=== PATIENT | female | born 1960 | race Caucasian/White ===

== ENCOUNTER 2016-12-11 05:19 | Day surgery (SDC) | payer BC ==
[2016-12-08 17:13] VITALS: BMI 36.0
[2016-12-11] MEDS ORDERED: ACETAMINOPHEN 325 MG TABLET (FP) PO PRN (08:16)
[2016-12-11] MEDS ORDERED: IBUPROFEN 400 MG TABLET (FP) PO PRN (08:16)
[2016-12-11] MEDS ORDERED: ONDANSETRON 4 MG/2 ML VIAL IVPB PRN (08:16)
[2016-12-11] MEDS ORDERED: oxyCODONE HCL 5 MG TABLET PO PRN ×2 (08:16→10:28)
--- NOTE | 2016-12-11 08:16 | HP ---
History & Physical Update - History History: No Change - Physical Physical: No Change - Assessment Assessment: No Change - Plan Plan: No Change
[2016-12-11] MEDS ORDERED: MIDAZOLAM HCL 2 MG/2 ML SINGLE DOSE VIAL ONE (10:23)
[2016-12-11] MEDS ORDERED: PROPOFOL 20 ML ONE (10:23)
[2016-12-11] MEDS ORDERED: GLYCOPYRROLATE 0.2 MG/1 ML VIAL ONE (10:24)
[2016-12-11] MEDS ORDERED: ONDANSETRON 4 MG/2 ML VIAL IVPUSH PRN (10:28)
[2016-12-11] MEDS ORDERED: PROMETHAZINE HCL 25 MG/1 ML VIAL IVPUSH PRN (10:28)
[2016-12-11] MEDS ORDERED: LACTATED RINGERS SOLUTION 1,000 ML IV SCH (10:30)
[2016-12-11] MEDS ORDERED: LIDOCAINE HCL/PF 2% SDV 5ML VIAL ONE (10:46)
[2016-12-11] MEDS ORDERED: ceFAZolin SODIUM 1 GM VIAL ONE (10:55)
[2016-12-11] MEDS ORDERED: DEXAMETHASONE SOD PHOSPHATE 4 MG/1 ML VIAL ONE (10:55)
[2016-12-11] MEDS ORDERED: ceFAZolin SODIUM 1 GM VIAL IVPB ONE (11:11)
[2016-12-11] MEDS ORDERED: KETOROLAC TROMETHAMINE 30 MG/1 ML VIAL ONE (11:27)
[2016-12-11] MEDS ORDERED: oxyCODONE HCL 5 MG TABLET ONE (13:01)
--- NOTE | 2016-12-11 13:11 | OP ---
Operative Note - Note: Operative Date: 12/11/16 Pre-Operative Diagnosis: Postmenopausal bleeding Operation: Hysteroscopic myomectomy. Suction DC. Hysteroscopic lysis of adhesions Findings: submucosal myoma Post-Operative Diagnosis: Same as Pre-op Surgeon: Bhavna Corrigan Anesthesia: General Estimated Blood Loss (mls): 10 Operative Report Dictated: Yes
[2016-12-11 18:13] VITALS: BP 106/60; PULSE 68
--- NOTE | 2016-12-12 06:03 | OP ---
DATE OF OPERATION: 12/11/2016 PREOPERATIVE DIAGNOSIS: Postmenopausal bleeding. PROCEDURE: Hysteroscopic myomectomy, suction dilatation and curettage, hysteroscopic lysis of adhesions. FINDINGS: Submucosal myoma and adhesions. POSTOPERATIVE DIAGNOSIS: Postmenopausal bleeding. SURGEON: Bhavna Corrigan MD ANESTHESIA: General. ESTIMATED BLOOD LOSS: 10 mL. PROCEDURE: Patient was taken to the operating room, placed in dorsal lithotomy position, prepped and draped in the usual sterile fashion. Speculum was placed in the vagina. Anterior lip of the cervix grasped with single-tooth tenaculum. Cervix was then dilated to accommodate the hysteroscope. Cervix could not be dilated for operative hysteroscope. Endocervical polyp was seen and was removed using operative hysteroscope. A diagnostic hysteroscope was then inserted. Visualization revealed small endometrial polyps. Patient was very stenotic and unable to dilate to accommodate the operative hysteroscope. Lysis of adhesions was done. Patient appeared to have a septum located in the midline of the uterus which prevented further dilation. The diagnostic hysteroscope revealed endometrial polyps. No endometrial cancer was seen. Cavity was normal other than polyps. Diagnostic hysteroscope was removed, and suction D & C was then done using a No. 7 suction curet. Endometrial curettings were submitted to Pathology and endometrial polyp was submitted. Estimated blood loss: 10 mL. BHAVNA CORRIGAN M.D. TIERRA/[id number]
--- NOTE | 2016-12-14 13:12 | PATH ---
Surgical Pathology Report Patient Name: DIRK MCCANN [facility]. Rec. #: [id number] /Age/Gender: 1960 (Age: 56) / F Account: [id number] Location: [facility] SURGICAL Taken: 12/11/2016 Received: 12/11/2016 Reported: 12/14/2016 Physicians: Bhavna Corrigan M.D. Specimen(s) Received A: ENDOCERVICAL CURETTINGS B: ENDOMETRIAL CURETTINGS Clinical History Postmenopausal bleeding Final Diagnosis A. ENDOCERVICAL POLYP, POLYPECTOMY: CONSISTENT WITH ENDOCERVICAL POLYP. B. ENDOMETRIUM, CURETTAGE: STRIPS OF ATROPHIC APPEARING ENDOMETRIUM. SCANT FRAGMENTS OF BENIGN SQUAMOUS EPITHELIUM. Electronically Signed Mario Correa M.D. Gross Description A. Received in formalin, labeled "endocervical polyp" is a 0.5 x 0.4 x 0.2 cm pink-diggs, polypoid portion of soft tissue which is submitted in toto in one cassette. B. Received in formalin, labeled "endometrial curettings" is a 0.7 x 0.5 x 0.1 cm aggregate of diggs-brown soft tissue fragments. The formalin is filtered and the specimen is entirely submitted in one cassette. 12/11/201612/11/2016
== END 2016-12-11 14:00 | disposition home or self-care (01) ==
LOC: JASU-SURG 05:19
PROVIDERS: ATTEND Obstetrics & Gynecology
PROC: 0UDB8ZX Extraction of Endometrium, Via Natural or Artificial Opening Endoscopic, Diagnostic (ICD-10-PCS; principal; 2016-12-11 09:30)
PROC: 0UB98ZZ Excision of Uterus, Via Natural or Artificial Opening Endoscopic (ICD-10-PCS; 2016-12-11 09:30)
DX: N95.0 Postmenopausal bleeding (principal); N85.6 Intrauterine synechiae
CPT/HCPCS: 88305-TC; 94760

== ENCOUNTER 2017-09-17 20:25 | Inpatient (IN) | payer BC ==
[2017-09-17 20:31] VITALS: BMI 34.4
--- NOTE | 2017-09-17 20:32 | PDOC ---
Rapid Medical Evaluation Chief Complaint: Injury Time Seen by Provider: 09/17/17 20:27 Medical Evaluation: Allergies Allergy/AdvReac Type Severity Reaction Status Date / Time No Known Allergies Allergy Verified 12/11/16 08:56 09/17/17 20:27 I have performed a brief in-person evaluation of this patient. The patient presents with a chief complaint of: Fall, Head injury with + LOC Pertinent physical exam findings: Laceration to left forehead I have ordered the following: Head and Neck CT, labs, urinalysis. The patient will proceed to the ED for further evaluation Patient presents to ED with daughter x2 c/o head injury w/ laceration. Daughter state patient went out for a smoke for about 15 mins, returned confused and bleeding from head. Daughter secretly reported that patient had been drinking tonight.
[2017-09-17 21:24] LABS: BASOPHIL 0.9 % (0-2.0); EOSINOPHIL 4.2 % (0-4.5); MCH 31.7 pg (25.7-33.7); MCHC 33.9 g/dl (32.0-36.0); MEAN CELL VOLUME 93.5 fl (80-96); MEAN PLT VOLUME 7.8 fl (7.5-11.1); NEUTROPHILS 57.7 % (42.8-82.8); PLATELET COUNT 249 K/MM3 (134-434); RDW 12.8 % (11.6-15.6); WHITE BLOOD COUNT 9.8 K/mm3 (4.0-10.0)
[2017-09-17 21:26] LABS: URINE APPEARANCE CLEAR; URINE BILIRUBIN NEGATIVE (NEGATIVE); URINE BLOOD NEGATIVE (NEGATIVE); URINE COLOR STRAW; URINE GLUCOSE (UA) NEGATIVE (NEGATIVE); URINE KETONE NEGATIVE (NEGATIVE); URINE NITRITE NEGATIVE (NEGATIVE); URINE PROTEIN NEGATIVE (NEGATIVE); URINE UROBILINOGEN NEGATIVE mg/dL (0.2-1.0)
--- NOTE | 2017-09-17 21:33 | PDOC ---
History of Present Illness - General Chief Complaint: Injury Stated Complaint: HEAD INJURY Time Seen by Provider: 09/17/17 20:27 - History of Present Illness Initial Comments: 09/17/17 21:29 57F with pmh of depression, cataracts surgery and back pain on Tizanidine came to the ER after fall with head trauma. Patient went outside to smoke and came back 15 min later with a laceration on her left sabianism. She doesn't remember what happened, fall not witnessed, possible LOC. No other complains. Daughters are here, claim mother was drinking tonight, and that she keeps repeating the same questions. Past History - Past Medical History Allergies/Adverse Reactions: Allergies Allergy/AdvReac Type Severity Reaction Status Date / Time Penicillins Allergy Verified 09/17/17 20:27 Home Medications: Ambulatory Orders Meloxicam [Mobic -] 15 mg PO DAILY 10/05/12 Multivitamin [Multivitamins] 1 each PO DAILY 10/05/12 Sertraline HCl [Zoloft -] 150 mg PO DAILY 10/05/12 Ascorbate Calcium [Vitamin C] 500 mg PO DAILY 12/08/16 [place]-3 Fatty Acids [Fish Oil] 300 mg PO DAILY 12/08/16 Ibuprofen [Motrin -] 600 mg PO QID PRN #28 tablet 12/11/16 Anemia: Yes Asthma: No Cancer: No Cardiac Disorders: No CVA: No COPD: No CHF: No Dementia: No Diabetes: No GI Disorders: No Disorders: No HTN: No Hypercholesterolemia: No Liver Disease: No Psychiatric Problems: Yes (anxiety) Seizures: No Thyroid Disease: No Other medical history: glaucoma - Surgical History Abdominal Surgery: No Appendectomy: No Cardiac Surgery: No Cholecystectomy: No Lung Surgery: No Neurologic Surgery: No Orthopedic Surgery: Yes (LEFT KNEE ARTHROSCOPIC SURGERY AND RIGHT KNEE REPALCEMENT 01/10) - Suicide/Smoking/Psychosocial Hx Smoking History: Current every day smoker Have you smoked in the past 12 months: Yes Number of Cigarettes Smoked Daily: 6 Information on smoking cessation initiated: No 'Breaking Loose' booklet given: 10/05/12 Hx Alcohol Use: No Drug/Substance Use Hx: No Substance Use Type: None Hx Substance Use Treatment: No Review of Systems - Review of Systems Constitutional: No: Symptoms Reported HEENTM: No: Symptoms Reported Respiratory: No: Symptoms reported Cardiac (ROS): No: Symptoms Reported ABD/GI: No: Symptoms Reported : No: Symptoms Reported Musculoskeletal: No: Symptoms Reported Neurological: Yes: Headache Psychiatric: Yes: Depression *Physical Exam - Vital Signs Last Vital Signs Temp Pulse Resp BP Pulse Ox 97.5 F L 78 18 135/83 100 09/17/17 20:27 09/17/17 20:27 09/17/17 20:27 09/17/17 20:27 09/17/17 20:27 - Physical Exam General Appearance: Yes: Nourished, Appropriately Dressed. No: Apparent Distress HEENT: positive: Other (3cm deep laceration on the right fronto-temporal skull. no active bleeding. Pupils 3mm, not reacting to light or accomodating. ) Respiratory/Chest: positive: Lungs Clear, Normal Breath Sounds. negative: Chest Tender Cardiovascular: positive: Regular Rhythm, Regular Rate, S1, S2 Gastrointestinal/Abdominal: positive: Normal Bowel Sounds, Soft. negative: Tender Neurologic: positive: Fully Oriented, Alert, Normal Mood/Affect, Normal Response , Motor Strength 5/5, Depressed Affect ED Treatment Course - LABORATORY CBC & Chemistry Diagram: 09/17/17 20:50 09/17/17 20:50 - ADDITIONAL ORDERS Additional order review: 09/17/17 20:50 RBC 4.36 MCV 93.5 MCHC 33.9 RDW 12.8 MPV 7.8 Neutrophils % 57.7 Lymphocytes % 30.9 Monocytes % 6.3 Eosinophils % 4.2 Basophils % 0.9 Medical Decision Making - Medical Decision Making 09/17/17 23:53 57F presenting with head laceration s/p fall. Unknown mechanism. Patient labs ordered. Urine positive for alcohol and cocaine [address] head: Acute left frontal bone fracture at junction of left frontal and temporal bones. The fracture fragment which measures approximately 2.2cm in length is depressed medially approximately 7mm. It impresses on the cortex at the junction on the left. There are one or 2 subdural air next to the fracture. No hemorrhage is identified. No shift or herniation. No infarct. There is overlying soft tissue injury. CT Neck: Negative for cervial fracture or malalignment. 1.2cm right lobe thyroid nodule 09/17/17 23:58 Started the patient on Vancomycin and Meropenem Consulted with Dr. Braulio Aguila, Neurosurgeon who will see the patient tonight. Recommended antibiotics and elevating head of the bed in the meantime. Consulted with Dr. Hughes, Neurology who recommended Adding Keppra Consulted with Hospitalist Dr. Gutierrez who accepted the patient. Admitted to ICU. Dr. Aguila present in the ER talking to the patient, informing her of need of surgery tomorrow. *DC/Admit/Observation/Transfer Diagnosis at time of Disposition: Depressed skull fracture - Discharge Dispostion Admit: Yes - Referrals Referrals: Elmer Cheung [Primary Care Provider] - - Patient Instructions - Post Discharge Activity
--- NOTE | 2017-09-17 21:42 | PDOC ---
Attending Attestation - Resident Resident Name: Bruno Luther - ED Attending Attestation I have performed the following: I have examined & evaluated the patient, The case was reviewed & discussed with the resident, I agree w/resident's findings & plan - HPI HPI: 09/17/17 22:36 Pt comes with fall in her backyard. She walked in after being down. Unclear how long she was down. 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 Pt lives with ehr and 2 daughters. Younger daughter was at home at the time, but was not aware that om went out to smoke. wanted pt to stay home figured she was okay. Older daughter came home to find mom bleeding. Both daughters brought mom to hospital. 09/17/17 22:42 Pt has depression anxiety; switched to paxil 2 months ago when her niece suddenly. Pt has fibromyalgia and she takes muscle relaxants. Pt also had alcohol today and her alcohol level is 200s. Other labs are normal. lvn Neurosurgeon and neurology are aware of the patient. Pt will be admitted to the hospitalist team; we will request an ICU bed overnight. - Physicial Exam PE: 09/17/17 22:40 Here pt is awake and alert and she is ambulatory. Ambulated to the bathroom here. She has no cerebellar symptoms. Neurologically intact; able to follow commands. CN 2 -12 intact, except for left pupil which is not reacting to light and not reacting to consensual light either. Pt's EOMI. Romberg normal. Pt has left temporal laceration. Rest of exam normal. CT head result is pending, however we can see a 2 inch area of the left alevism depressed fracture. - Medical Decision Making 09/17/17 23:01 Pt is + for cocaine; Pt is + for alcohol. Dr. Ricky Aguila neurosjasbir is at bedside to see the patient. Dr. Mauro is aware of the patient; hospitalist will admit patient, as her PMD is not in this hospital.
[2017-09-17 21:51] LABS: ANION GAP 9 (8-16); CALCIUM 8.1 mg/dL (8.5-10.1); CO2 24 mmol/L (21-32); CREATININE 0.4 mg/dL (0.55-1.02); GLUCOSE,RANDOM 106 mg/dL (74-106); SGOT/AST 16 U/L (15-37); SGPT/ALT 33 U/L (12-78)
[2017-09-17 21:53] LABS: ALK PHOS 65 U/L (45-117); BILIRUBIN,TOTAL 0.7 mg/dL (0.2-1.0)
[2017-09-17] MEDS ORDERED: VANCOMYCIN 1,500 MG in DEXTROSE 5%-WATER - 500 ML IVPB ONE (22:35)
[2017-09-17] MEDS ORDERED: DEXTROSE 5% IVPB ONE (22:38)
[2017-09-17] MEDS ORDERED: WATER IVPB ONE (22:38)
[2017-09-17] MEDS ORDERED: MEROPENEM IVPB ONE (22:38)
[2017-09-17 22:58] LABS: URINE MARIJUANA THC NEGATIVE ng/ml (CUTOFF=50)
--- NOTE | 2017-09-17 23:22 | PN ---
Progress Note (short form) - Note Progress Note: NEUROSURGERY CONSULT DICTATED History obtained Pt examined Family at bedside Was drinking and fell and hit her head; + LOC; no witnessed sz c/o H/A but no N/V PE: AF, VSS A/A/Ox3 HEENT- L temporal lac with skull depression; Neck- supple; Cor- RRR; Lungs- CTA B; Abd- benign, + BS; Ext- no sign of fx or DVT CN- intact; pupils reportedly dilated earlier; Motor- 5/5 without drift; Sensation- intact LT, vibration; DTR- 1+; cerebellar- intact FTN B Head CT (prelim)- L fronto-temporal depressed skull fx; no significant intracranial bleed WBC 9.8; Na 134; INR/Ptt pending L fronto-temporal open depressed skull fracture Pre-op OR in AM (0900) L fronto-temporal craniotomy for elevation of fx, debridement, and skull reconstruction- consent obtained and witnessed Iv abx per medical team nikki for sz prophylaxis Risks: bleeding, infection, stroke, sz, coma, , brain abscess/meningitis, general anesthesia ICU tonight Nursing supervisor [place] informed D/w medical team
[2017-09-17 23:30] LABS: INR 0.92 (0.82-1.09); PROTHROMBIN TIME (PATIENT) 10.4 SEC (9.98-11.88)
[2017-09-17] MEDS ORDERED: MEROPENEM 2 GM in DEXTROSE 5%-WATER - 250 ML IVPB ONE (23:30)
[2017-09-17 23:32] LABS: ACTIVATED PTT 29.7 SECONDS (26.9-34.4)
--- NOTE | 2017-09-17 23:51 | PN ---
Teaching Attending Note Name of Resident: Bill Glynn ATTENDING PHYSICIAN STATEMENT I saw and evaluated the patient. I reviewed the resident's note and discussed the case with the resident. I agree with the resident's findings and plan as documented. SUBJECTIVE: 57 y/o s/p fall at home with trauma to left temporal area and LOC time unknown. Patient reports drinking before incident and has no recollection of what happened. Denies visual changes, headache, dizziness, confusion or chest pain or SOB. OBJECTIVE: Gen: A&Ox3 cooperative and anxious HEENT: LEft temporal laceration and depression, with minimal bleeding and swelling. EOMI,, normal nasal and oral mucosa. CVS: RRR, S1,S2 LUNGS: CTA Abd: Soft, NT, ND, BS+ no organomegaly Ext: b/l knee scars , nl ROM, no edema Neuro: CN2-12 intact CBCD WBC 9.8 K/mm3 (4.0-10.0) 09/17/17 20:50 RBC 4.36 M/mm3 (3.60-5.2) 09/17/17 20:50 Hgb 13.8 GM/dL (10.7-15.3) 09/17/17 20:50 Hct 40.7 % (32.4-45.2) 09/17/17 20:50 MCV 93.5 fl (80-96) 09/17/17 20:50 MCHC 33.9 g/dl (32.0-36.0) 09/17/17 20:50 RDW 12.8 % (11.6-15.6) 09/17/17 20:50 Plt Count 249 K/MM3 (134-434) 09/17/17 20:50 MPV 7.8 fl (7.5-11.1) 09/17/17 20:50 CMP Sodium 134 mmol/L (136-145) L 09/17/17 20:50 Potassium 3.8 mmol/L (3.5-5.1) 09/17/17 20:50 Chloride 101 mmol/L (98-107) 09/17/17 20:50 Carbon Dioxide 24 mmol/L (21-32) 09/17/17 20:50 Anion Gap 9 (8-16) 09/17/17 20:50 BUN 17 mg/dL (7-18) 09/17/17 20:50 Creatinine 0.4 mg/dL (0.55-1.02) L 09/17/17 20:50 Creat Clearance w eGFR > 60 (>60) 09/17/17 20:50 Random Glucose 106 mg/dL (74-106) 09/17/17 20:50 Calcium 8.1 mg/dL (8.5-10.1) L 09/17/17 20:50 Total Bilirubin 0.7 mg/dL (0.2-1.0) D 09/17/17 20:50 AST 16 U/L (15-37) 09/17/17 20:50 ALT 33 U/L (12-78) 09/17/17 20:50 Alkaline Phosphatase 65 U/L (45-117) 09/17/17 20:50 Total Protein 7.0 g/dl (6.4-8.2) 09/17/17 20:50 Albumin 4.0 g/dl (3.4-5.0) 09/17/17 20:50 ASSESSMENT AND PLAN: Open Depressed skull fracture, s/p fall and LOC Neurowatch q2h Admit to ICU for close observation Wound cleansed in ED and dressing placed. Type and screen, Coag profile. Vancomycin and Meropenem Keppra given for seizure prophylaxis Tetanus shot given in ED ID Consult ICU consult Case d/w neurosurgeon and plan for OR in AM, NPO after midnight, follow care recommendations. Critical Care Total Critical Care Time (in minutes): 55 Critical Care Statement: The care of this patient involved high complexity decision making to prevent further life threatening deterioration of the patient 's condition and/or to evaluate & treat vital organ system(s) failure or risk of failure.
--- NOTE | 2017-09-18 00:42 | HP ---
CHIEF COMPLAINT:s/p head injury PCP:Elmer Cheung HISTORY OF PRESENT ILLNESS: 57 yo F with PMHx of depression presents s/p fall and head injury. She states that she was drinking this afternoon and went outside to have a cigarette when she fell to ground and hit her head. Fall was unwitnessed. She states she is unsure how long she was unconscious for but when she ccame to she walked into her house and her family members noticed her head bleeding. This prompted call to EMS. She is complaining of associated headache. Denies CP,SOB, palpitations, abdominal pain, N/V. ER course was notable for: (1)CT of head showed Open depressed skull fracture. (2)Neuro surgery consulted. (3)Keppra 500 given . Recent Travel: PAST MEDICAL HISTORY:depression and anxiety. PAST SURGICAL HISTORY:cataract, glucoma, , right knee repair. Social History: Smokin pack year history Alcohol:6 drinks/day Drugs: cocaine Family History: Allergies Penicillins Allergy (Verified 09/17/17 20:27) HOME MEDICATIONS: Home Medications Medication Instructions Recorded Meloxicam [Mobic -] 15 mg PO DAILY 10/05/12 Multivitamin [Multivitamins] 1 each PO DAILY 10/05/12 Sertraline HCl [Zoloft -] 150 mg PO DAILY 10/05/12 Ascorbate Calcium [Vitamin C] 500 mg PO DAILY 12/08/16 [place]-3 Fatty Acids [Fish Oil] 300 mg PO DAILY 12/08/16 Ibuprofen [Motrin -] 600 mg PO QID PRN #28 tablet 12/11/16 REVIEW OF SYSTEMS CONSTITUTIONAL: Absent: fever, chills, diaphoresis, generalized weakness, malaise, loss of appetite, weight change HEENT: left sided head pain. Absent: rhinorrhea, nasal congestion, throat pain, throat swelling, difficulty swallowing, mouth swelling, ear pain, eye pain, visual changes CARDIOVASCULAR: Absent: chest pain, syncope, palpitations, irregular heart rate, lightheadedness , peripheral edema RESPIRATORY: Absent: cough, shortness of breath, dyspnea with exertion, orthopnea, wheezing, stridor, hemoptysis GASTROINTESTINAL: Absent: abdominal pain, abdominal distension, nausea, vomiting, diarrhea, constipation, melena, hematochezia GENITOURINARY: Absent: dysuria, frequency, urgency, hesitancy, hematuria, flank pain, genital pain MUSCULOSKELETAL: Absent: myalgia, arthralgia, joint swelling, back pain, neck pain SKIN: Absent: rash, itching, pallor HEMATOLOGIC/IMMUNOLOGIC: Absent: easy bleeding, easy bruising, lymphadenopathy, frequent infections ENDOCRINE: Absent: unexplained weight gain, unexplained weight loss, heat intolerance, cold intolerance NEUROLOGIC: Absent: headache, focal weakness or paresthesias, dizziness, unsteady gait, seizure, mental status changes, bladder or bowel incontinence PSYCHIATRIC: Absent: anxiety, depression, suicidal or homicidal ideation, hallucinations. PHYSICAL EXAMINATION Vital Signs - 24 hr 09/17/17 20:27 Temperature 97.5 F L Pulse Rate 78 Respiratory 18 Rate Blood Pressure 135/83 O2 Sat by Pulse 100 Oximetry (%) GENERAL: AAOx3, NAD. HEAD: L temporal lac with skull depression EYES: Pupils reactive but dialated. , sclera anicteric, conjunctiva clear. No lid lag. EARS, NOSE, THROAT: Moist mucous membranes. NECK: Normal range of motion, supple without lymphadenopathy, JVD, or masses. LUNGS: CTAB. No wheezes, and no crackles. No accessory muscle use. HEART: RRR, normal S1 and S2 No M/G/R ABDOMEN: Soft, nontender, not distended, normoactive bowel sounds, no guarding, no rebound, no masses. MUSCULOSKELETAL: Normal range of motion at all joints. No bony deformities or tenderness. No CVA tenderness. UPPER EXTREMITIES: 2+ pulses, warm, well-perfused. No cyanosis. No clubbing. No peripheral edema. LOWER EXTREMITIES: 2+ pulses, warm, well-perfused. No calf tenderness. No peripheral edema. NEUROLOGICAL: Cranial nerves II-XII intact. Normal speech. No focal deficits. PSYCHIATRIC: Cooperative. Good eye contact. Appropriate mood and affect. SKIN: Warm, dry, normal turgor, no rashes or lesions noted, normal capillary refill. Laboratory Results - last 24 hr 09/17/17 09/17/17 09/17/17 20:33 20:50 20:50 WBC 9.8 RBC 4.36 Hgb 13.8 Hct 40.7 MCV 93.5 MCH 31.7 MCHC 33.9 RDW 12.8 Plt Count 249 MPV 7.8 Neutrophils % 57.7 Lymphocytes % 30.9 Monocytes % 6.3 Eosinophils % 4.2 Basophils % 0.9 PT with INR INR PTT (Actin FS) Sodium Potassium Chloride Carbon Dioxide Anion Gap BUN Creatinine Creat Clearance w eGFR Random Glucose Calcium Total Bilirubin AST ALT Alkaline Phosphatase Total Protein Albumin Urine Color Straw Urine Appearance Clear Urine pH 5.0 Ur Specific [place] 1.006 Urine Protein Negative Urine Glucose (UA) Negative Urine Ketones Negative Urine Blood Negative Urine Nitrite Negative Urine Bilirubin Negative Urine Urobilinogen Negative Opiates Screen Methadone Screen Barbiturate Screen Phencyclidine Screen Ur Amphetamines Screen MDMA (Ecstasy) Screen Benzodiazepines Screen Cocaine Screen U Marijuana (THC) Screen Alcohol, Quantitative 201.6 H* 09/17/17 09/17/17 09/17/17 20:50 22:20 23:00 WBC RBC Hgb Hct MCV MCH MCHC RDW Plt Count MPV Neutrophils % Lymphocytes % Monocytes % Eosinophils % Basophils % PT with INR 10.40 INR 0.92 PTT (Actin FS) 29.7 Sodium 134 L Potassium 3.8 Chloride 101 Carbon Dioxide 24 Anion Gap 9 BUN 17 Creatinine 0.4 L Creat Clearance w eGFR > 60 Random Glucose 106 Calcium 8.1 L Total Bilirubin 0.7 D AST 16 ALT 33 Alkaline Phosphatase 65 Total Protein 7.0 Albumin 4.0 Urine Color Urine Appearance Urine pH Ur Specific [place] Urine Protein Urine Glucose (UA) Urine Ketones Urine Blood Urine Nitrite Urine Bilirubin Urine Urobilinogen Opiates Screen Negative Methadone Screen Negative Barbiturate Screen Negative Phencyclidine Screen Negative Ur Amphetamines Screen Negative MDMA (Ecstasy) Screen Negative Benzodiazepines Screen Negative Cocaine Screen Positive U Marijuana (THC) Screen Negative Alcohol, Quantitative ASSESSMENT/PLAN: 57 yo F with PMHx of depression presents s/p fall and head injury found to have open depressed skull fracture admitted to ICU for neurosurgery in AM. Problem List - Problem (1) Depressed skull fracture Assessment/Plan: CT shows open depressed skull fracture. * Seen by Dr. Aguila and will take her to OR at 900 AM * Admit to ICU. * Coags and type and screen sent. * TSH pending. * Neuro Dr. Hughes consulted. * NPO * Keppra for seizure prevention. * Meropenem/Vanco started for Abx coverage. --> Dr. Leon consulted. (2) Depression Assessment/Plan: Continue Zoloft. (3) DVT prophylaxis Assessment/Plan: held for acute bleed. Visit type - Emergency Visit Emergency Visit: Yes ED Registration Date: 09/17/17 Care time: The patient presented to the Emergency Department on the above date and was hospitalized for further evaluation of their emergent condition. - New Patient This patient is new to me today: Yes Date on this admission: 09/18/17 - Critical Care Critical Care patient: Yes Total Critical Care Time (in minutes): 68 Critical Care Statement: The care of this patient involved high complexity decision making to prevent further life threatening deterioration of the patient 's condition and/or to evaluate & treat vital organ system(s) failure or risk of failure.
[2017-09-18] MEDS ORDERED: PNEUMOC 13-VAL CONJ-DIP CRM/PF 0.5 ML DISP.SYRIN IM ONE (01:54)
--- NOTE | 2017-09-18 04:49 | CONSULT ---
Consult Consult Specialty:: Pulm/CCM Reason for Consultation:: Head trauma with depressed skull fracture - History of Present Illness Chief Complaint: Headache History of Present Illness: 57 saray with PMHx of depression, fibromyalgia, cataracts s/p surgery, glaucoma, daily ETOH.(beer) who was brought in by daughter after fall at home with resulting head trauma. Pt states that she was in her usual state of health when she went outside in the yard with the dog, She does not recall falling. She denied chest pain, dizziness or sick prodrome. In ED she was noted to have a 3cm laceration to left frontal/temporal area of her head. CTH significant for acute frontal bone fracture at the junction of the left frontal and temporal bones with a depressed 2.2 cm fragment impressing on the cortex.There was no hemorrhage, herniation or infarct. CT neck was negative. UTox notable for cocaine. Alcohol level was 201. Pupils ar unequal and minimally reactive m/l 2/2 to previous surgery. No focal deficits noted on exam. She was seen by neuro surgery, Dr Aguila with plan for craniotomy at 9am. Head laceration was sutured and she was started on vancomycin and meropenem for prophylaxis. She was transferred to ICU for observation. In ICU rec'd A+O x3, 120/60, HR 88, O2 sat 97%. Dressing to head laceration dry and intact. Neuro checks q1h. No focal deficits on exam. DODGE. Denies numbness tingling. Pt c/o 6/10 headache. No s&s of DTs. 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 History of Recent Travel: No Home Medications - Allergies Allergies/Adverse Reactions: Allergies Allergy/AdvReac Type Severity Reaction Status Date / Time Penicillins Allergy Verified 09/17/17 20:27 - Home Medications Home Medications: Ambulatory Orders Meloxicam [Mobic -] 15 mg PO DAILY 10/05/12 Multivitamin [Multivitamins] 1 each PO DAILY 10/05/12 Sertraline HCl [Zoloft -] 150 mg PO DAILY 10/05/12 Ascorbate Calcium [Vitamin C] 500 mg PO DAILY 12/08/16 [place]-3 Fatty Acids [Fish Oil] 300 mg PO DAILY 12/08/16 Ibuprofen [Motrin -] 600 mg PO QID PRN #28 tablet 12/11/16 Family Disease History - Family Disease History Family History: Unremarkable Review of Systems Unable to obtain ROS, reason: Pt has no recollection Physical Exam Vital Signs: Vital Signs Temperature 98.1 F 09/18/17 01:38 Pulse Rate 78 09/18/17 01:38 Respiratory Rate 16 09/18/17 01:38 Blood Pressure 128/63 09/18/17 01:38 O2 Sat by Pulse Oximetry (%) 96 09/18/17 01:38 Constitutional: Yes: Well Nourished, No Distress, Calm Eyes: Yes: Other (anisocoria 2/2 eye surgery) HENT: Yes: Normocephalic, Other (head dressing c/d/i) Neck: Yes: Supple Cardiovascular: Yes: WNL, Regular Rate and Rhythm Respiratory: Yes: Regular, CTA Bilaterally Gastrointestinal: Yes: Normal Bowel Sounds, Soft Renal/: Yes: Other (voiding) Musculoskeletal: Yes: WNL Extremities: Yes: WNL Edema: No Peripheral Pulses WNL: Yes Integumentary: Yes: WNL Wound/Incision: Yes: Clean/Dry Neurological: Yes: Alert, Oriented ...Motor Strength: WNL Psychiatric: Yes: Alert, Oriented Labs: CBC, BMP 09/17/17 20:50 09/17/17 20:50 CBC,CMP WBC 9.8 K/mm3 (4.0-10.0) 09/17/17 20:50 RBC 4.36 M/mm3 (3.60-5.2) 09/17/17 20:50 Hgb 13.8 GM/dL (10.7-15.3) 09/17/17 20:50 Hct 40.7 % (32.4-45.2) 09/17/17 20:50 MCV 93.5 fl (80-96) 09/17/17 20:50 MCH 31.7 pg (25.7-33.7) 09/17/17 20:50 MCHC 33.9 g/dl (32.0-36.0) 09/17/17 20:50 RDW 12.8 % (11.6-15.6) 09/17/17 20:50 Plt Count 249 K/MM3 (134-434) 09/17/17 20:50 MPV 7.8 fl (7.5-11.1) 09/17/17 20:50 Neutrophils % 57.7 % (42.8-82.8) 09/17/17 20:50 Lymphocytes % 30.9 % (8-40) 09/17/17 20:50 Monocytes % 6.3 % (3.8-10.2) 09/17/17 20:50 Eosinophils % 4.2 % (0-4.5) 09/17/17 20:50 Basophils % 0.9 % (0-2.0) 09/17/17 20:50 Sodium 134 mmol/L (136-145) L 09/17/17 20:50 Potassium 3.8 mmol/L (3.5-5.1) 09/17/17 20:50 Chloride 101 mmol/L (98-107) 09/17/17 20:50 Carbon Dioxide 24 mmol/L (21-32) 09/17/17 20:50 Anion Gap 9 (8-16) 09/17/17 20:50 BUN 17 mg/dL (7-18) 09/17/17 20:50 Creatinine 0.4 mg/dL (0.55-1.02) L 09/17/17 20:50 Creat Clearance w eGFR > 60 (>60) 09/17/17 20:50 Random Glucose 106 mg/dL (74-106) 09/17/17 20:50 Calcium 8.1 mg/dL (8.5-10.1) L 09/17/17 20:50 Total Bilirubin 0.7 mg/dL (0.2-1.0) D 09/17/17 20:50 AST 16 U/L (15-37) 09/17/17 20:50 ALT 33 U/L (12-78) 09/17/17 20:50 Alkaline Phosphatase 65 U/L (45-117) 09/17/17 20:50 Total Protein 7.0 g/dl (6.4-8.2) 09/17/17 20:50 Albumin 4.0 g/dl (3.4-5.0) 09/17/17 20:50 TSH 3.02 uIU/ml (0.358-3.74) 09/17/17 22:51 Imaging - Results Cat Scan: Report Reviewed (CT Head Left frontal/temporal fracture with 2.2cm fragment impessing cortex; no hemorrhage, herniation or infarct) Problem List - Problems (1) Alcohol abuse Code(s): F10.10 - ALCOHOL ABUSE, UNCOMPLICATED (2) Depressed skull fracture Code(s): S02.91XA - UNSP FRACTURE OF SKULL, INIT ENCNTR FOR CLOSED FRACTURE Qualifiers: Encounter type: initial encounter Fracture type: open Qualified Code(s): S02.91XB - Unspecified fracture of skull, initial encounter for open fracture (3) Depression Code(s): F32.9 - MAJOR DEPRESSIVE DISORDER, SINGLE EPISODE, UNSPECIFIED Qualifiers: Depression Type: major depressive disorder Assessment/Plan 57yow with PMHx depression and alcohol abuse admitted with left depressed frontal/temporal skull fracture after a fall at home. + LOC. Neuro checks currently normal. Being observed in ICU. Plan for OR with neurosurgery for skull fracture repair. Plan: -Plan as per neuro surgery -Neuro checks q2 -NPO for OR -Cont keppra for seizure prophylaxis -Cont Meropenem and vanco for prophylaxis - DVT prophylaxis
[2017-09-18] MEDS ORDERED: LACTATED RINGERS SOLUTION 1,000 ML IV SCH (08:45)
[2017-09-18] MEDS ORDERED: PROMETHAZINE HCL 25 MG/1 ML VIAL IVPUSH PRN (09:00)
[2017-09-18] MEDS ORDERED: ONDANSETRON 4 MG/2 ML VIAL IVPUSH PRN ×2 (09:00→11:51)
[2017-09-18] MEDS ORDERED: PNEUMOCOCCAL 23 VACCINE 0.5 ML VIAL IM ONE (09:00)
[2017-09-18] MEDS ORDERED: ROCURONIUM BROMIDE 50 MG/5 ML VIAL ONE (09:09)
[2017-09-18] MEDS ORDERED: PROPOFOL 20 ML ONE (09:09)
[2017-09-18] MEDS ORDERED: MIDAZOLAM HCL 2 MG/2 ML SINGLE DOSE VIAL ONE (09:09)
[2017-09-18] MEDS ORDERED: LIDOCAINE HCL/PF 2% SDV 5ML VIAL ONE (09:10)
--- NOTE | 2017-09-18 09:12 | HOSP ---
Subjective - Review of Symptoms Subjective: pt seen and examined in ICU. She complains of head ache, shes ready for surgery Physical Examination Vital Signs: Vital Signs Temperature 98.4 F 09/18/17 05:00 Pulse Rate 96 H 09/18/17 08:00 Respiratory Rate 26 H 09/18/17 08:00 Blood Pressure 110/50 09/18/17 08:00 O2 Sat by Pulse Oximetry (%) 97 09/18/17 09:00 Findings/Remarks: PE Neuro: L front dressing, sanguinous, + tenderness, alert, awake, cn 2-12intact Pulm: CTAB CV: s1 s2 rrr no mrg Abd: s nt nd + bs Ext: warm, no le edema, + DP pulses Labs: CBC, BMP 09/17/17 20:50 09/17/17 20:50 Hospitalist Encounter Assessment: Imaging: CT Head Left frontal/temporal fracture with 2.2cm fragment impessing cortex; no hemorrhage, herniation or infarct Assessment: 57 year old male with PMHx depression and alcohol abuse admitted with left depressed frontal/temporal skull fracture s/p fall at home. + LOC. Neuro checks currently normal. Being observed in ICU. Plan for OR with neurosurgery for skull fracture repair. Plan: 1. L depressed frontal/temporal skull fx - For OR with neurosurgery today - Keppra BID, further recs per neuro - s/p paris snow in ED, will d/w neuro for further treatment pending OR procedure 2. Depression - Zoloft 150mg, will need to confirm dose with pt 3. ETOH abuse - No signs of withdrawal - Consider rehab
[2017-09-18] MEDS ORDERED: VANCOMYCIN 1,000 MG VIAL (RESTRICTED TO ID ONLY) NR ONE (09:15)
[2017-09-18] MEDS ORDERED: BACITRACIN 50,000 UNITS VIAL NR ONE (09:15)
[2017-09-18] MEDS ORDERED: VANCOMYCIN 1,000 MG in DEXTROSE 5%-WATER - 250 ML IVPB ONE (09:15)
[2017-09-18] MEDS ORDERED: DESFLURANE GAS 240 ML BOTTLE IH ONE (09:44)
[2017-09-18] MEDS ORDERED: VANCOMYCIN 1,000 MG VIAL (RESTRICTED TO ID ONLY) ONE (09:49)
[2017-09-18] MEDS ORDERED: LIDOCAINE 1%/EPI 1:100000 (20 ML MULTI DOSE VIAL) ONE (10:03)
[2017-09-18] MEDS ORDERED: LIDOCAINE 1%/EPI 1:100000 (20 ML MULTI DOSE VIAL) PNB ONE (10:08)
[2017-09-18] MEDS ORDERED: THROMBIN (BOVINE) 5,000 UNIT VIAL TP ONE (10:25)
[2017-09-18] MEDS ORDERED: BACITRACIN 50,000 UNITS VIAL TP ONE (10:31)
[2017-09-18] MEDS ORDERED: GLYCOPYRROLATE 0.2 MG/1 ML VIAL ONE (11:04)
[2017-09-18] MEDS ORDERED: NEOSTIGMINE METHYLSULFATE 0.5 MG/ML - 10 ML MDV ONE (11:05)
--- NOTE | 2017-09-18 11:46 | CONSULT ---
Consult - text type - Consultation Consultation Note: Neurology History of Present Illness 57F with pmh of depression, cataracts surgery and back pain on Tizanidine came to the ER after fall with head trauma. Patient went outside to smoke and came back 15 min later with a laceration on her left anabaptism. Reportedly she didn't remember what happened, fall not witnessed, possible LOC. per family, she had been consuling ETOH. CT head was completed in the ER and demonstrated Acute left frontal bone fracture at junction of left frontal and temporal bones. The fracture fragment which measures approximately 2.2cm in length is depressed medially approximately 7mm. It impresses on the cortex at the junction on the left. There are one or 2 subdural air next to the fracture. No hemorrhage is identified. No shift or herniation. No infarct. There is overlying soft tissue injury. CT Neck also done and showed: Negative for cervial fracture or malalignment. 1.2cm right lobe thyroid nodule. I was contacted by Dr. Luther and recommended seizure ppx be started and NSGY consult. Dr. Aguila consulted and patient for craniotomy this AM. Past History - Past Medical History Allergies/Adverse Reactions: Allergies Allergy/AdvReac Type Severity Reaction Status Date / Time Penicillins Allergy Verified 09/17/17 20:27 Home Medications: Ambulatory Orders Meloxicam [Mobic -] 15 mg PO DAILY 10/05/12 Multivitamin [Multivitamins] 1 each PO DAILY 10/05/12 Sertraline HCl [Zoloft -] 150 mg PO DAILY 10/05/12 Ascorbate Calcium [Vitamin C] 500 mg PO DAILY 12/08/16 [place]-3 Fatty Acids [Fish Oil] 300 mg PO DAILY 12/08/16 Ibuprofen [Motrin -] 600 mg PO QID PRN #28 tablet 12/11/16 Anemia: Yes Asthma: No Cancer: No Cardiac Disorders: No CVA: No COPD: No CHF: No Dementia: No Diabetes: No GI Disorders: No Disorders: No HTN: No Hypercholesterolemia: No Liver Disease: No Psychiatric Problems: Yes (anxiety) Seizures: No Thyroid Disease: No Other medical history: glaucoma - Surgical History Abdominal Surgery: No Appendectomy: No Cardiac Surgery: No Cholecystectomy: No Lung Surgery: No Neurologic Surgery: No Orthopedic Surgery: Yes (LEFT KNEE ARTHROSCOPIC SURGERY AND RIGHT KNEE REPALCEMENT 01/10) - Suicide/Smoking/Psychosocial Hx Smoking History: Current every day smoker Have you smoked in the past 12 months: Yes Number of Cigarettes Smoked Daily: 6 Information on smoking cessation initiated: No 'Breaking Loose' booklet given: 10/05/12 Hx Alcohol Use: No Drug/Substance Use Hx: No Substance Use Type: None Hx Substance Use Treatment: No Review of Systems - Review of Systems Constitutional: No: Symptoms Reported HEENTM: No: Symptoms Reported Respiratory: No: Symptoms reported Cardiac (ROS): No: Symptoms Reported ABD/GI: No: Symptoms Reported : No: Symptoms Reported Musculoskeletal: No: Symptoms Reported Neurological: Yes: Headache Psychiatric: Yes: Depression *Physical Exam - Vital Signs Last Vital Signs Temp Pulse Resp BP Pulse Ox 97.5 F L 78 18 135/83 100 09/17/17 20:27 09/17/17 20:27 09/17/17 20:27 09/17/17 20:27 09/17/17 20:27 - Physical Exam General Appearance: Yes: Nourished, Appropriately Dressed. No: Apparent Distress HEENT: positive: Other (3cm deep laceration on the right fronto-temporal skull. no active bleeding. Pupils 3mm, not reacting to light or accomodating. ) Respiratory/Chest: positive: Lungs Clear, Normal Breath Sounds. negative: Chest Tender Cardiovascular: positive: Regular Rhythm, Regular Rate, S1, S2 Gastrointestinal/Abdominal: positive: Normal Bowel Sounds, Soft. negative: Tender Neurologic: positive: Fully Oriented, Alert, Normal Mood/Affect, Normal Response , Motor Strength 5/5, sensory intact, gait deferred CBCD WBC 9.8 K/mm3 (4.0-10.0) 09/17/17 20:50 RBC 4.36 M/mm3 (3.60-5.2) 09/17/17 20:50 Hgb 13.8 GM/dL (10.7-15.3) 09/17/17 20:50 Hct 40.7 % (32.4-45.2) 09/17/17 20:50 MCV 93.5 fl (80-96) 09/17/17 20:50 MCHC 33.9 g/dl (32.0-36.0) 09/17/17 20:50 RDW 12.8 % (11.6-15.6) 09/17/17 20:50 Plt Count 249 K/MM3 (134-434) 09/17/17 20:50 MPV 7.8 fl (7.5-11.1) 09/17/17 20:50 CMP Sodium 134 mmol/L (136-145) L 09/17/17 20:50 Potassium 3.8 mmol/L (3.5-5.1) 09/17/17 20:50 Chloride 101 mmol/L (98-107) 09/17/17 20:50 Carbon Dioxide 24 mmol/L (21-32) 09/17/17 20:50 Anion Gap 9 (8-16) 09/17/17 20:50 BUN 17 mg/dL (7-18) 09/17/17 20:50 Creatinine 0.4 mg/dL (0.55-1.02) L 09/17/17 20:50 Creat Clearance w eGFR > 60 (>60) 09/17/17 20:50 Calcium 8.1 mg/dL (8.5-10.1) L 09/17/17 20:50 Total Bilirubin 0.7 mg/dL (0.2-1.0) D 09/17/17 20:50 AST 16 U/L (15-37) 09/17/17 20:50 ALT 33 U/L (12-78) 09/17/17 20:50 Alkaline Phosphatase 65 U/L (45-117) 09/17/17 20:50 Total Protein 7.0 g/dl (6.4-8.2) 09/17/17 20:50 Albumin 4.0 g/dl (3.4-5.0) 09/17/17 20:50 CT head: Acute left frontal bone fracture at junction of left frontal and temporal bones. The fracture fragment which measures approximately 2.2cm in length is depressed medially approximately 7mm. It impresses on the cortex at the junction on the left. There are one or 2 subdural air next to the fracture. No hemorrhage is identified. No shift or herniation. No infarct. There is overlying soft tissue injury. CT Neck: Negative for cervial fracture or malalignment. 1.2cm right lobe thyroid nodule Medical Decision Making 57F with pmh of depression, cataracts surgery and back pain on Tizanidine came to the ER after fall with head trauma. Patient went outside to smoke and came back 15 min later with a laceration on her left anabaptism. Reportedly she didn't remember what happened, fall not witnessed, possible LOC. per family, she had been consuling ETOH. CT head was completed in the ER and demonstrated Acute left frontal bone fracture at junction of left frontal and temporal bones. The fracture fragment which measures approximately 2.2cm in length is depressed medially approximately 7mm. It impresses on the cortex at the junction on the left. There are one or 2 subdural air next to the fracture. No hemorrhage is identified. No shift or herniation. No infarct. There is overlying soft tissue injury. CT Neck also done and showed: Negative for cervial fracture or malalignment. 1.2cm right lobe thyroid nodule. I was contacted by Dr. Luther and recommended seizure ppx be started and NSGY consult. Dr. Aguila consulted and patient for craniotomy this AM. Patient receiving surgical intervention. Monitor blood pressure, maintain normotensive range. Follow up NSGY notes and monitor neurologic exam. Continue Keppra for seizure prevention. Abx for infection prevention. Must be cautious of subsequent falls and head trauma. Etoh cessation recommended, Critical care 35mins
--- NOTE | 2017-09-18 11:50 | OP ---
Operative Note - Note: Operative Date: 09/18/17 Pre-Operative Diagnosis: Left frontal temporal open depressed skull fracture Operation: Left fronto-temporal craniotomy, elevation of depressed skull fracture; skull reconstruction with Styker titanium system/cranioplasty; microdissection;irrigation; skull laceration repairs Findings: scalp laceration. depressed compound skull fracture Implants: Jyothi titanium plating systems Post-Operative Diagnosis: Same as Pre-op Surgeon: Braulio Aguila Anesthesiologist/SALES DIRECTOR: Sunday Bates Anesthesia: General Specimens Removed: none Estimated Blood Loss (mls): 200 Operative Report Dictated: Yes
[2017-09-18] MEDS ORDERED: ACETAMINOPHEN WITH CODEINE 300MG/30MG TABLET PO PRN (11:51)
[2017-09-18] MEDS ORDERED: PT OWN MED DRAWER 7, Y5N ONE ×2 (12:26→17:05)
[2017-09-18] MEDS: levETIRAcetam 500 MG/5 ML INJECTION VIAL IVPB SCH ×2 (12:28→21:18)
[2017-09-18] MEDS: MUPIROCIN 2% TOPICAL OINTMENT FOR DECOLONIZATION NS SCH ×2 (12:32→21:11)
[2017-09-18] MEDS ORDERED: TETANUS IMMUNE GLOBULIN 250 UNITS DISP.SYRIN IM ONE (13:45)
[2017-09-18] MEDS: D5-NS + 20 MEQ KCL - 20 MEQ/1,000 ML INFUS.BAG IV SCH (15:12)
[2017-09-18] MEDS: morphine SULFATE 4 MG/ML VIAL IVPUSH PRN ×3 (15:19→23:01)
[2017-09-18] MEDS: DOCUSATE SODIUM 100 MG CAPSULE (FP) PO SCH ×2 (15:20→21:11)
--- NOTE | 2017-09-18 16:07 | CON.ID ---
Consult Consult Specialty:: infectious diseases Reason for Consultation:: infected skull wound - History of Present Illness History of Present Illness: 57 yo F with PMHx of depression presents s/p fall and head injury. Her injury occurred during her drinking and when she went outside to smoke and fell and hit her head family member noticed she was bleeding and patient came to the hospital where it was found that the patient had a depressed fracture patient it seems had some mental status changes,no witnessed seizures patient was taken to the operating room and was operated by neurosurgery also neurology on case now patient has a dressing over the head It seems her wound was soiled with dirt and hair - History Source History Provided By: Patient Limitations to Obtaining History: No Limitations - Past Medical History ...LMP: 07/13/11 Psych: Yes: Anxiety, Depression Rheumatology: Yes: Fibromyalgia - Past Surgical History Past Surgical History: Yes: Cataract Removal - Alcohol/Substance Use Hx Alcohol Use: Yes - Smoking History Smoking history: Current every day smoker Have you smoked in the past 12 months: Yes Aproximately how many cigarettes per day: 6 - Social History Usual Living Arrangement: With Spouse ADL: Independent 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 History of Recent Travel: No Home Medications - Allergies Allergies/Adverse Reactions: Allergies Allergy/AdvReac Type Severity Reaction Status Date / Time Penicillins Allergy Verified 09/17/17 20:27 - Home Medications Home Medications: Ambulatory Orders Meloxicam [Mobic -] 15 mg PO DAILY 10/05/12 Multivitamin [Multivitamins] 1 each PO DAILY 10/05/12 Sertraline HCl [Zoloft -] 150 mg PO DAILY 10/05/12 Ascorbate Calcium [Vitamin C] 500 mg PO DAILY 12/08/16 [place]-3 Fatty Acids [Fish Oil] 300 mg PO DAILY 12/08/16 Ibuprofen [Motrin -] 600 mg PO QID PRN #28 tablet 12/11/16 Review of Systems - Review of Systems Constitutional: reports: Other Eyes: reports: No Symptoms HENT: reports: Other (headache,bleeding from the skull) Neck: reports: No Symptoms Cardiovascular: reports: No Symptoms Respiratory: reports: No Symptoms Gastrointestinal: reports: No Symptoms Genitourinary: reports: No Symptoms Musculoskeletal: reports: No Symptoms Integumentary: reports: No Symptoms Neurological: reports: Confusion Endocrine: reports: No Symptoms Hematology/Lymphatic: reports: No Symptoms Psychiatric: reports: No Symptoms Physical Exam Vital Signs: Vital Signs Temperature 98.3 F 09/18/17 14:00 Pulse Rate 83 09/18/17 15:00 Respiratory Rate 19 09/18/17 15:00 Blood Pressure 145/73 09/18/17 15:00 O2 Sat by Pulse Oximetry (%) 99 09/18/17 14:00 Constitutional: Yes: Well Nourished, Calm, Mild Distress Eyes: Yes: Conjunctiva Clear HENT: Yes: Atraumatic, Other (head has dressing had--L temporal lac with skull depression;) Neck: Yes: Supple, Trachea Midline Cardiovascular: Yes: Regular Rate and Rhythm Respiratory: Yes: Regular, CTA Bilaterally Gastrointestinal: Yes: Normal Bowel Sounds, Soft Musculoskeletal: Yes: WNL Extremities: Yes: WNL Neurological: Yes: Alert, Oriented Psychiatric: Yes: Alert, Oriented Labs: CBC, BMP 09/17/17 20:50 09/17/17 20:50 Imaging - Results Chest X-ray: Report Reviewed, Image Reviewed Cat Scan: Report Reviewed, Image Reviewed Assessment/Plan Problem List - Problems (1) Alcohol abuse Code(s): F10.10 - ALCOHOL ABUSE, UNCOMPLICATED (2) Depressed skull fracture Code(s): S02.91XA - UNSP FRACTURE OF SKULL, INIT ENCNTR FOR CLOSED FRACTURE Qualifiers: Encounter type: initial encounter Fracture type: open Qualified Code(s): S02.91XB - Unspecified fracture of skull, initial encounter for open fracture (3) Depression Code(s): F32.9 - MAJOR DEPRESSIVE DISORDER, SINGLE EPISODE, UNSPECIFIED Qualifiers: Depression Type: major depressive disorder looking at her history of etoh abuse and fracture with suspicion of soiling i am going to start patient on iv abx for now we will monitor how patient does and then make further decision plan will start on meropenam and clinda close watch for any fevers resp issues clinical symptoms rest as per primary/icu cc time 45 min
[2017-09-18] MEDS ORDERED: CLINDAMYCIN 300 MG PREMIX IVPB 300 MG/50 ML BAG IVPB SCH (16:15)
[2017-09-18 16:16] LABS: URINE LEUK ESTERASE Negative (NEGATIVE)
[2017-09-18] MEDS: MEROPENEM 1 GM in DEXTROSE 5%-WATER - 100 ML IVPB SCH ×2 (18:01→18:02)
[2017-09-18] MEDS: CLINDAMYCIN 300 MG PREMIX IVPB 300 MG/50 ML BAG IVPB SCH (18:01)
[2017-09-18] MEDS: VANCOMYCIN 1,000 MG in DEXTROSE 5%-WATER - 250 ML IVPB SCH (21:12)
[2017-09-18] MEDS ORDERED: CHLORHEXIDINE GLUCONATE 4% CLEANSER FOR DECOLONIZATION TP SCH (22:00)
[2017-09-19] MEDS: MEROPENEM 1 GM in DEXTROSE 5%-WATER - 100 ML IVPB SCH (01:29)
[2017-09-19] MEDS: CLINDAMYCIN 300 MG PREMIX IVPB 300 MG/50 ML BAG IVPB SCH ×3 (01:29→17:25)
[2017-09-19 06:24] LABS: BASOPHIL 0.2 % (0-2.0); EOSINOPHIL 0.2 % (0-4.5); INR 1.04 (0.82-1.09); MCH 31.2 pg (25.7-33.7); MCHC 33.5 g/dl (32.0-36.0); MEAN CELL VOLUME 93.1 fl (80-96); MEAN PLT VOLUME 7.8 fl (7.5-11.1); NEUTROPHILS 75.2 % (42.8-82.8); PLATELET COUNT 221 K/MM3 (134-434); PROTHROMBIN TIME (PATIENT) 11.7 SEC (9.98-11.88); RDW 12.8 % (11.6-15.6)
[2017-09-19 06:27] LABS: ACTIVATED PTT 25.7 SECONDS (26.9-34.4)
[2017-09-19 06:34] LABS: ALBUMIN 3.5 g/dl (3.4-5.0); ANION GAP 10 (8-16); BILIRUBIN,TOTAL 0.9 mg/dL (0.2-1.0); CALCIUM 8.4 mg/dL (8.5-10.1); CO2 26 mmol/L (21-32); CREATININE 0.4 mg/dL (0.55-1.02); GLUCOSE,RANDOM 114 mg/dL (74-106); MAGNESIUM 2.1 mg/dL (1.8-2.4); PHOSPHOROUS 2.9 mg/dL (2.5-4.9); SGOT/AST 17 U/L (15-37); SGPT/ALT 30 U/L (12-78); TOT PROT 6.3 g/dl (6.4-8.2)
[2017-09-19 06:35] LABS: ALK PHOS 60 U/L (45-117)
[2017-09-19] MEDS: morphine SULFATE 4 MG/ML VIAL IVPUSH PRN ×4 (06:49→22:59)
[2017-09-19] MEDS: DOCUSATE SODIUM 100 MG CAPSULE (FP) PO SCH ×3 (06:49→22:23)
--- NOTE | 2017-09-19 08:16 | PN ---
Progress Note (short form) - Note Progress Note: NEUROSURGERY POD #1 minimal H/A no N/V PE: Tmax 98.9, AF, VSS A/A/Ox3 HEENT- L temporal lac with skull depression; Neck- supple; Cor- RRR; Lungs- CTA B; Abd- benign, + BS; Ext- no sign of fx or DVT CN- intact; pupils reportedly dilated earlier; Motor- 5/5 without drift; Sensation- intact LT, vibration; DTR- 1+; cerebellar- intact FTN B L fronto-temporal open depressed skull fracture dayra for sz prophylaxis On Clinda and merepenem per ID CT this AM Adv diet as tolerated If CT stable could be transferred to floor care
[2017-09-19] MEDS: D5-NS + 20 MEQ KCL - 20 MEQ/1,000 ML INFUS.BAG IV SCH ×2 (08:51→12:00)
[2017-09-19] MEDS: MUPIROCIN 2% TOPICAL OINTMENT FOR DECOLONIZATION NS SCH (09:28)
[2017-09-19] MEDS: levETIRAcetam 500 MG/5 ML INJECTION VIAL IVPB SCH ×2 (09:29→22:23)
[2017-09-19] MEDS: MEROPENEM 1 GM PUSH 1 GM/20 ML DISP.SYRIN IVPUSH SCH ×2 (09:29→17:25)
[2017-09-19] MEDS: VANCOMYCIN 1,000 MG in DEXTROSE 5%-WATER - 250 ML IVPB SCH ×2 (09:30→22:55)
--- NOTE | 2017-09-19 09:52 | PN ---
Progress Note (short form) - Note Progress Note: PULM/CCM Pt seen and examined in ICU 24Hr: -to OR yesterday for crainotomy, fixation of depressed skull fx -mental status and LACKEY improved -repeat CT head pending Vital Signs Temp 98.3 F 09/19/17 08:00 Pulse 64 09/19/17 08:00 Resp 13 09/19/17 08:00 BP 123/67 09/19/17 08:00 Pulse Ox 95 09/19/17 08:00 Intake & Output 09/18/17 09/18/17 09/19/17 11:59 23:59 11:59 Intake Total 500 1425 1510 Balance 500 1425 1510 Weight 99.79 kg 100.329 kg Intake: IV 0 625 960 DEXTROSE 5%-NORMAL SALINE 300 960 +20 MEQ KCL - 20 meq In 1 ,000 ml @ 80 mls/hr IV ASDIR [facility] Rx#:[id number] Lactated Ringers Solution 325 1,000 ml @ 125 mls/hr IV ASDIR [facility] Rx#: [id number] IVPB 500 150 550 Oral 650 Other: Voiding Method Toilet Toilet Toilet # Unmeasured Voids Void 1 2 2 Height 5 ft 7 in Body Mass Index (BMI) 34.4 Weight Measurement Method Stated by Patient Built in Bedscale Active Medications Acetaminophen/Codeine Phosphate (Tylenol # 3 -) tab PO Q4H PRN PRN Reason: PAIN Chlorhexidine Gluconate (Hibiclens For Decolonization -) 1 applic TP HS [facility] Last Admin: 09/18/17 21:12 Dose: 1 applic Docusate Sodium (Colace -) 100 mg PO TID [facility] Last Admin: 09/19/17 06:49 Dose: 100 mg Fentanyl (Sublimaze Injection -) 50 mcg IVPUSH [id number] PRN PRN Reason: PAIN Last Admin: 09/18/17 12:23 Dose: 50 mcg Dextrose/Sodium Chloride (Dextrose 5%-Normal Saline+20 Meq Kcl -) 20 meq in 1, 000 mls @ 80 mls/hr IV ASDIR [facility] Last Admin: 09/19/17 08:51 Dose: 80 mls/hr Vancomycin HCl 1,000 mg/ (Dextrose) 250 mls @ 250 mls/hr IVPB BID [facility] PRN Reason: Protocol Stop: 09/19/17 21:59 Last Admin: 09/19/17 09:30 Dose: 250 mls/hr Clindamycin Phosphate (Cleocin 300 Mg Premix Ivpb) 300 mg in 50 mls @ 100 mls/ hr IVPB Q8H-IV [facility] Last Admin: 09/19/17 09:29 Dose: 100 mls/hr Meropenem (Merrem (Restricted To Id) -) 1 gm in 20 mls @ 240 mls/hr IVPUSH Q8H- IV [facility] Last Admin: 09/19/17 09:29 Dose: 240 mls/hr Levetiracetam (Keppra Injection -) 500 mg IVPB BID [facility] Last Admin: 09/19/17 09:29 Dose: 500 mg Morphine Sulfate (Morphine Sulfate) 2 mg IVPUSH Q4H PRN PRN Reason: PAIN Last Admin: 09/19/17 06:49 Dose: 2 mg Mupirocin (Bactroban Ointment (For Decolonization) -) 1 applic NS BID [facility] Stop: 09/23/17 09:59 Last Admin: 09/19/17 09:28 Dose: 1 applic Ondansetron HCl (Zofran Injection) 4 mg IVPUSH Q6H PRN PRN Reason: NAUSEA AND/OR VOMITING Ondansetron HCl (Zofran Injection) 4 mg IVPUSH Q6H PRN PRN Reason: NAUSEA Pantoprazole Sodium (Protonix Iv) 40 mg IVPUSH DAILY [facility] Last Admin: 09/19/17 09:29 Dose: 40 mg Promethazine HCl (Phenergan Injection -) 12.5 mg IVPUSH Q6H PRN PRN Reason: NAUSEA-FOR RESCUE AFTER 15 MIN Sertraline HCl (Zoloft -) 150 mg PO DAILY [facility] Last Admin: 09/19/17 09:30 Dose: 150 mg CBCD WBC 13.0 K/mm3 (4.0-10.0) H D 09/19/17 05:50 RBC 3.91 M/mm3 (3.60-5.2) 09/19/17 05:50 Hgb 12.2 GM/dL (10.7-15.3) D 09/19/17 05:50 Hct 36.4 % (32.4-45.2) 09/19/17 05:50 MCV 93.1 fl (80-96) 09/19/17 05:50 MCHC 33.5 g/dl (32.0-36.0) 09/19/17 05:50 RDW 12.8 % (11.6-15.6) 09/19/17 05:50 Plt Count 221 K/MM3 (134-434) 09/19/17 05:50 MPV 7.8 fl (7.5-11.1) 09/19/17 05:50 CMP Sodium 140 mmol/L (136-145) 09/19/17 05:50 Potassium 3.9 mmol/L (3.5-5.1) 09/19/17 05:50 Chloride 104 mmol/L (98-107) 09/19/17 05:50 Carbon Dioxide 26 mmol/L (21-32) 09/19/17 05:50 Anion Gap 10 (8-16) 09/19/17 05:50 BUN 10 mg/dL (7-18) D 09/19/17 05:50 Creatinine 0.4 mg/dL (0.55-1.02) L 09/19/17 05:50 Creat Clearance w eGFR > 60 (>60) 09/19/17 05:50 Calcium 8.4 mg/dL (8.5-10.1) L 09/19/17 05:50 Total Bilirubin 0.9 mg/dL (0.2-1.0) D 09/19/17 05:50 AST 17 U/L (15-37) 09/19/17 05:50 ALT 30 U/L (12-78) 09/19/17 05:50 Alkaline Phosphatase 60 U/L (45-117) 09/19/17 05:50 Total Protein 6.3 g/dl (6.4-8.2) L 09/19/17 05:50 Albumin 3.5 g/dl (3.4-5.0) 09/19/17 05:50 PE: HEENT: PERRL, dressing CDI PULM: Clear anterio CV: RRR ABD: soft NT EXT: no edema NEURO: no focal deficits, awake, conversant Problem List - Problems (1) Alcohol abuse Code(s): F10.10 - ALCOHOL ABUSE, UNCOMPLICATED (2) Depressed skull fracture Code(s): S02.91XA - UNSP FRACTURE OF SKULL, INIT ENCNTR FOR CLOSED FRACTURE Qualifiers: Encounter type: initial encounter Fracture type: open Qualified Code(s): S02.91XB - Unspecified fracture of skull, initial encounter for open fracture (3) Depression Code(s): F32.9 - MAJOR DEPRESSIVE DISORDER, SINGLE EPISODE, UNSPECIFIED Qualifiers: Depression Type: major depressive disorder Assessment/Plan 57yow with PMHx depression and alcohol abuse admitted with left depressed frontal/temporal skull fracture after a fall at home. + LOC. Neuro checks currently normal. Being observed in ICU. Plan for OR with neurosurgery for skull fracture repair. Plan: -Plan as per neuro surgery -to Floor after CT head -Cont keppra for seizure prophylaxis -infectious prophy as per ID - DVT prophylaxis -OOB to chair Gustabo Navarro ACNP [id number]
[2017-09-19] MEDS ORDERED: PANTOPRAZOLE SODIUM 40 MG VIAL IVPUSH SCH (10:00)
[2017-09-19] MEDS ORDERED: SERTRALINE HCL 50 MG TABLET (FP) PO SCH (10:00)
[2017-09-19] MEDS ORDERED: FLUoxetine HCL 20 MG CAPSULE (FP) PO SCH (10:00)
--- NOTE | 2017-09-19 10:41 | CONS ---
DATE OF CONSULTATION: DATE OF DICTATION: 09/17/2017 REQUESTING PHYSICIANS: Dr. Luther and Dr. Wright CHIEF COMPLAINT: Left frontotemporal open depressed skull fracture after blunt trauma. HISTORY OF PRESENT ILLNESS: The patient is a 57-year-old right-handed female with history of osteoarthritis, status post right knee replacement, depression, who had gone outside after having drunk alcohol, and reportedly fallen. She hit her head and lost consciousness. She was able to get herself up and went back upstairs. She complains of a headache but no nausea or vomiting. She is a smoker and had gone out initially to smoke. She has no other known seizure activities. She denies any fevers or chills. Her family is at bedside. PAST MEDICAL HISTORY: Significant for depression, anxiety, fibromyalgia, chronic alcohol drinker, osteoarthritis, right knee replacement. MEDICATIONS: Paxil; Mobic; multivitamin; Zoloft; [place]-3; ibuprofen p.r.n.; and vitamin C. ALLERGIES: PENICILLIN. SOCIAL HISTORY: She is a chronic smoker and smokes about a pack of cigarettes a day. She was urged strongly to quit smoking. She drinks alcohol regularly as well. 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 She stated that she has used cocaine for the 1st time in a long time today. She is with children. She lives at home. FAMILY HISTORY: Noncontributory. REVIEW OF SYSTEMS: Otherwise negative for major constitutional, head and neck, cardiovascular, pulmonary, gastrointestinal, genitourinary, endocrinological, neurological, and psychological problems except for the above. PHYSICAL EXAMINATION:Vital Signs: Temperature is 97.5, blood pressure is 175/83 , pulse rate is 78. HEENT: Shows her to have a left anterior and superior temporal laceration with visible underlying depressed skull fracture. Neck: Supple with no nuchal rigidity. There is no carotid bruit. Cardiac: Demonstrated a regular rhythm. Lungs: Clear bilaterally. Abdomen: Benign but mildly obese. Extremities: Shows a right knee scar from her prior knee replacement. There is no sign of DVT. Neurologic: She is awake, alert, and oriented x3. Cranial nerve examination is intact II-XII. Motor examination shows her to have 5/5 strength without drift. Sensory examination is intact to light touch and vibratory sensation. Deep tendon reflexes are 5+ throughout. There is no pathological long tract sign. Gait is not tested for safety reasons. Cerebellar examination demonstrated normal coordination without tremor. LABORATORY EXAMINATION: Shows a white blood cell count of 9.8 and a hemoglobin of 13.8, platelet count is 249,000. INR and PT are pending. Serum sodium is 134 and potassium is 3.8, BUN is 17, creatinine is 0.4, calcium is 8.1. Urinalysis is negative. Toxicology is positive for cocaine as well as an alcohol level of 202. CT scan of the brain demonstrated left frontotemporal depressed skull fracture with downward displacement of the fracture fragment the thickness of the skull. There is overlying septal hematoma in the laceration. There is no underlying cerebral hemorrhage. A small amount of pneumocephalus is noted. CT scan of the cervical spine was also reviewed, and it demonstrated no acute fracture or dislocation. There is some slight reversal in normal cervical lordosis. Degenerative disk space narrowing is noted at C4-5 and C5-6. There is also mild bridging osteophyte. There is no canal compromise. IMPRESSION: 1. Acute left frontotemporal open depressed skull fracture. 2. Chronic alcohol use. 3. Depression/anxiety. 4. Osteoarthritis. 5. History of right knee replacement. RECOMMENDATIONS: The patient presents with likely a mechanical fall and head trauma with an open depressed skull fracture. There appears to be a small amount of pneumocephalus and the depressed skull fragment is approximately an entire skull thickness in terms of downward displacement. The diameter of the skull fracture is approximately 2.5 cm or so. Given the nature of the open depressed skull fracture, craniotomy for elevation of this depressed skull fracture with skull reconstruction after debridement and irrigation is indicated. There is possibly underlying dural laceration. Without proper debridement and skull reconstruction and skull fracture elevation, risk of subsequent meningitis and possible brain abscess will be higher. The patient is informed of the above findings. She agrees to the proposed procedure as outlined above. The risks of the procedure include, but are not limited to, bleeding, infection , CSF leak, stroke, seizure, coma, , brain abscess, and other risks of general anesthesia. The patient understands the indications of the procedure, procedure in detail, risks and benefits and alternatives for treatment of her condition, including irrigation and closure of scalp only. She will be given IV antibiotic, including vancomycin and meropenem prophylactically at this time. She is also to be on Keppra for seizure prophylaxis given the depressed skull fracture. All questions were answered at bedside in the emergency room. The nursing patient registration supervisor was informed and the surgery is scheduled tomorrow morning at 9 a.m. Type and cross will be obtained for the operating room. Family was at bedside in ED. ARNOLD MULLIGAN M.D. [id number] MTDD
[2017-09-19] MEDS ORDERED: PT OWN MED DRAWER 7, Y5N ONE ×2 (11:48→16:34)
--- NOTE | 2017-09-19 13:09 | PN ---
Physical Exam: SUBJECTIVE: Patient seen and examined in ICU. She has pain to her operation site , however denies radiation of pain, sob, fever, visual changes OBJECTIVE: Vital Signs Period Temp Pulse Resp BP Sys/Dillard Pulse Ox Last 24 Hr 98.1 F-98.9 F 64-83 12-19 103-155/59-90 95-99 PE Neuro: alert, awake, cn 2-2intact, skull dressing intact, L supra orbital swelling, + L sided tenderness Pulm: CTAB CV: s1 s2 rrr no mrg Abd: s nt nd + bs Ext: warm, no le edema + dp pulses Laboratory Results - last 24 hr 09/17/17 09/19/17 09/19/17 20:50 05:50 05:50 WBC 13.0 H D RBC 3.91 Hgb 12.2 D Hct 36.4 MCV 93.1 MCH 31.2 MCHC 33.5 RDW 12.8 Plt Count 221 MPV 7.8 Neutrophils % 75.2 D Lymphocytes % 15.8 D Monocytes % 8.6 Eosinophils % 0.2 D Basophils % 0.2 PT with INR 11.70 INR 1.04 PTT (Actin FS) 25.7 L Sodium Potassium Chloride Carbon Dioxide Anion Gap BUN Creatinine Creat Clearance w eGFR Random Glucose Calcium Phosphorus Magnesium Total Bilirubin AST ALT Alkaline Phosphatase Total Protein Albumin Ur Leukocyte Esterase Negative 09/19/17 05:50 WBC RBC Hgb Hct MCV MCH MCHC RDW Plt Count MPV Neutrophils % Lymphocytes % Monocytes % Eosinophils % Basophils % PT with INR INR PTT (Actin FS) Sodium 140 Potassium 3.9 Chloride 104 Carbon Dioxide 26 Anion Gap 10 BUN 10 D Creatinine 0.4 L Creat Clearance w eGFR > 60 Random Glucose 114 H Calcium 8.4 L Phosphorus 2.9 Magnesium 2.1 Total Bilirubin 0.9 D AST 17 ALT 30 Alkaline Phosphatase 60 Total Protein 6.3 L Albumin 3.5 Ur Leukocyte Esterase Active Medications Generic Name Dose Route Start Last Admin Trade Name Freq PRN Reason Stop Dose Admin Acetaminophen/Codeine Phosphate tab 09/18/17 11:51 Tylenol # 3 - PO Q4H PRN PAIN Chlorhexidine Gluconate 1 applic 09/18/17 22:00 09/18/17 21:12 Hibiclens For Decolonization - TP 1 applic HS DONYA Administration Docusate Sodium 100 mg 09/18/17 14:00 09/19/17 06:49 Colace - PO 100 mg TID DONYA Administration Fentanyl 50 mcg 09/18/17 08:31 09/18/17 12:23 Sublimaze Injection - IVPUSH 50 mcg [id number] PRN Administration PAIN Fluoxetine HCl 20 mg 09/19/17 10:00 09/19/17 12:41 Prozac - PO 20 mg DAILY DNOYA Administration Dextrose/Sodium Chloride 20 meq in 1,000 mls @ 80 mls/hr 09/18/17 12:00 09/19 12:00 Dextrose 5%-Normal Saline+20 Meq Kcl - IV Not Given ASDIR DONYA Vancomycin HCl 1,000 mg/ 250 mls @ 250 mls/hr 09/18/17 22:00 09/19/17 09:30 Dextrose IVPB 09/19/17 21:59 250 mls/hr BID DONYA Administration Protocol Clindamycin Phosphate 300 mg in 50 mls @ 100 mls/hr 09/18/17 18:00 09/19/17 09:29 Cleocin 300 Mg Premix Ivpb IVPB 100 mls/hr Q8H-IV [facility] Administration Meropenem 1 gm in 20 mls @ 240 mls/hr 09/19/17 10:00 09/19/17 09:29 Merrem (Restricted To Id) - IVPUSH 240 mls/hr Q8H-IV [facility] Administration Levetiracetam 500 mg 09/18/17 10:00 09/19/17 09:29 Keppra Injection - IVPB 500 mg BID DONYA Administration Morphine Sulfate 2 mg 09/18/17 00:24 09/19/17 11:47 Morphine Sulfate IVPUSH 2 mg Q4H PRN Administration PAIN Mupirocin 1 applic 09/18/17 10:00 09/19/17 09:28 Bactroban Ointment (For Decolonization) - NS 09/23/17 09:59 1 applic BID DONYA Administration Ondansetron HCl 4 mg 09/18/17 09:00 Zofran Injection IVPUSH Q6H PRN NAUSEA AND/OR VOMITING Ondansetron HCl 4 mg 09/18/17 11:51 Zofran Injection IVPUSH Q6H PRN NAUSEA Pantoprazole Sodium 40 mg 09/19/17 10:00 09/19/17 09:29 Protonix Iv IVPUSH 40 mg DAILY [facility] Administration Promethazine HCl 12.5 mg 09/18/17 09:00 Phenergan Injection - IVPUSH Q6H PRN NAUSEA-FOR RESCUE AFTER 15 MIN Assessment: 57 year old male with PMHx depression and alcohol abuse admitted with left depressed frontal/temporal skull fracture s/p fall at home, now s/p skull fracture repair 09/18. Plan: 1. L depressed frontal/temporal skull fx - s/p crainotomy, fixation of depressed skull fracture 09/18 - Maintain Keppra BID for seizure ppx - Continue paris/vanc/clinda per ID - AM head CT w/ normal post surgical findings 2. Depression - Changed from zoloft to prozac 20mg in 07/2017; continue 3. ETOH abuse - No signs of withdrawal Dispo: - Transfer to floor Visit type - Emergency Visit Emergency Visit: Yes ED Registration Date: 09/17/17 Care time: The patient presented to the Emergency Department on the above date and was hospitalized for further evaluation of their emergent condition. - New Patient This patient is new to me today: Yes Date on this admission: 09/19/17 - Critical Care Critical Care patient: No
--- NOTE | 2017-09-19 15:28 | PN ---
Progress Note (short form) - Note Progress Note: Neurology History of Present Illness 57F with pmh of depression, cataracts surgery and back pain on Tizanidine came to the ER after fall with head trauma. Patient went outside to smoke and came back 15 min later with a laceration on her left baptism. Reportedly she didn't remember what happened, fall not witnessed, possible LOC. per family, she had been consuling ETOH. CT head was completed in the ER and demonstrated Acute left frontal bone fracture at junction of left frontal and temporal bones. The fracture fragment which measured approximately 2.2cm in length is depressed medially approximately 7mm. It impressed on the cortex at the junction on the left. No hemorrhage was identified. Dr. Aguila completed surgical intervention without complication and repeat CT head this morning showed fluid without significant mass effect. Remains on seizure ppx and had headache this AM, otherwise neurologically stable. Active Medications Acetaminophen/Codeine Phosphate (Tylenol # 3 -) tab PO Q4H PRN PRN Reason: PAIN Chlorhexidine Gluconate (Hibiclens For Decolonization -) 1 applic TP HS [facility] Last Admin: 09/18/17 21:12 Dose: 1 applic Docusate Sodium (Colace -) 100 mg PO TID [facility] Last Admin: 09/19/17 13:59 Dose: 100 mg Fentanyl (Sublimaze Injection -) 50 mcg IVPUSH [id number] PRN PRN Reason: PAIN Last Admin: 09/18/17 12:23 Dose: 50 mcg Fluoxetine HCl (Prozac -) 20 mg PO DAILY [facility] Last Admin: 09/19/17 12:41 Dose: 20 mg Vancomycin HCl 1,000 mg/ (Dextrose) 250 mls @ 250 mls/hr IVPB BID [facility] PRN Reason: Protocol Stop: 09/19/17 21:59 Last Admin: 09/19/17 09:30 Dose: 250 mls/hr Clindamycin Phosphate (Cleocin 300 Mg Premix Ivpb) 300 mg in 50 mls @ 100 mls/ hr IVPB Q8H-IV [facility] Last Admin: 09/19/17 09:29 Dose: 100 mls/hr Meropenem (Merrem (Restricted To Id) -) 1 gm in 20 mls @ 240 mls/hr IVPUSH Q8H- IV [facility] Last Admin: 09/19/17 09:29 Dose: 240 mls/hr Levetiracetam (Keppra Injection -) 500 mg IVPB BID [facility] Last Admin: 09/19/17 09:29 Dose: 500 mg Morphine Sulfate (Morphine Sulfate) 2 mg IVPUSH Q4H PRN PRN Reason: PAIN Last Admin: 09/19/17 11:47 Dose: 2 mg Mupirocin (Bactroban Ointment (For Decolonization) -) 1 applic NS BID [facility] Stop: 09/23/17 09:59 Last Admin: 09/19/17 09:28 Dose: 1 applic Ondansetron HCl (Zofran Injection) 4 mg IVPUSH Q6H PRN PRN Reason: NAUSEA AND/OR VOMITING Ondansetron HCl (Zofran Injection) 4 mg IVPUSH Q6H PRN PRN Reason: NAUSEA Pantoprazole Sodium (Protonix Iv) 40 mg IVPUSH DAILY [facility] Last Admin: 09/19/17 09:29 Dose: 40 mg Promethazine HCl (Phenergan Injection -) 12.5 mg IVPUSH Q6H PRN PRN Reason: NAUSEA-FOR RESCUE AFTER 15 MIN Vital Signs Temperature 98.0 F 09/19/17 14:00 Pulse Rate 66 09/19/17 14:00 Respiratory Rate 14 09/19/17 14:00 Blood Pressure 126/66 09/19/17 14:00 O2 Sat by Pulse Oximetry (%) 98 09/19/17 10:16 - Physical Exam General Appearance: Yes: Nourished, Appropriately Dressed. No: Apparent Distress HEENT: positive: Other (3cm deep laceration on the right fronto-temporal skull. no active bleeding. Pupils 3mm, not reacting to light or accomodating. ) Respiratory/Chest: positive: Lungs Clear, Normal Breath Sounds. negative: Chest Tender Cardiovascular: positive: Regular Rhythm, Regular Rate, S1, S2 Gastrointestinal/Abdominal: positive: Normal Bowel Sounds, Soft. negative: Tender Neurologic: positive: Fully Oriented, Alert, Normal Mood/Affect, Normal Response , Motor Strength 5/5, sensory intact, gait deferred CBCD WBC 13.0 K/mm3 (4.0-10.0) H D 09/19/17 05:50 RBC 3.91 M/mm3 (3.60-5.2) 09/19/17 05:50 Hgb 12.2 GM/dL (10.7-15.3) D 09/19/17 05:50 Hct 36.4 % (32.4-45.2) 09/19/17 05:50 MCV 93.1 fl (80-96) 09/19/17 05:50 MCHC 33.5 g/dl (32.0-36.0) 09/19/17 05:50 RDW 12.8 % (11.6-15.6) 09/19/17 05:50 Plt Count 221 K/MM3 (134-434) 09/19/17 05:50 MPV 7.8 fl (7.5-11.1) 09/19/17 05:50 CMP Sodium 140 mmol/L (136-145) 09/19/17 05:50 Potassium 3.9 mmol/L (3.5-5.1) 09/19/17 05:50 Chloride 104 mmol/L (98-107) 09/19/17 05:50 Carbon Dioxide 26 mmol/L (21-32) 09/19/17 05:50 Anion Gap 10 (8-16) 09/19/17 05:50 BUN 10 mg/dL (7-18) D 09/19/17 05:50 Creatinine 0.4 mg/dL (0.55-1.02) L 09/19/17 05:50 Creat Clearance w eGFR > 60 (>60) 09/19/17 05:50 Calcium 8.4 mg/dL (8.5-10.1) L 09/19/17 05:50 Total Bilirubin 0.9 mg/dL (0.2-1.0) D 09/19/17 05:50 AST 17 U/L (15-37) 09/19/17 05:50 ALT 30 U/L (12-78) 09/19/17 05:50 Alkaline Phosphatase 60 U/L (45-117) 09/19/17 05:50 Total Protein 6.3 g/dl (6.4-8.2) L 09/19/17 05:50 Albumin 3.5 g/dl (3.4-5.0) 09/19/17 05:50 CT head: Acute left frontal bone fracture at junction of left frontal and temporal bones. The fracture fragment which measures approximately 2.2cm in length is depressed medially approximately 7mm. It impresses on the cortex at the junction on the left. There are one or 2 subdural air next to the fracture. No hemorrhage is identified. No shift or herniation. No infarct. There is overlying soft tissue injury. CT Neck: Negative for cervial fracture or malalignment. 1.2cm right lobe thyroid nodule Medical Decision Making 57F with pmh of depression, cataracts surgery and back pain on Tizanidine came to the ER after fall with head trauma. Patient went outside to smoke and came back 15 min later with a laceration on her left baptism. Reportedly she didn't remember what happened, fall not witnessed, possible LOC. per family, she had been consuling ETOH. CT head was completed in the ER and demonstrated Acute left frontal bone fracture at junction of left frontal and temporal bones. The fracture fragment which measured approximately 2.2cm in length is depressed medially approximately 7mm. It impressed on the cortex at the junction on the left. No hemorrhage was identified. Dr. Aguila completed surgical intervention without complication and repeat CT head this morning showed fluid without significant mass effect. Remains on seizure ppx and had headache this AM, otherwise neurologically stable. Continue Monitoring blood pressure, maintain normotensive range. Follow up NSGY notes and monitor neurologic exam. Continue Keppra for seizure prevention. Abx for infection prevention. Must be cautious of subsequent falls and head trauma. Etoh cessation recommended, remains in ICU with close monitoring. Critical care 35mins
[2017-09-19] MEDS ORDERED: ONDANSETRON 4 MG/2 ML VIAL IVPUSH PRN ×2 (18:39)
[2017-09-19] MEDS ORDERED: PROMETHAZINE HCL 25 MG/1 ML VIAL IVPUSH PRN (18:39)
[2017-09-19] MEDS ORDERED: MUPIROCIN 2% TOPICAL OINTMENT FOR DECOLONIZATION NS SCH (22:00)
[2017-09-20] MEDS: CLINDAMYCIN 300 MG PREMIX IVPB 300 MG/50 ML BAG IVPB SCH ×2 (01:16→10:08)
[2017-09-20] MEDS: MEROPENEM 1 GM PUSH 1 GM/20 ML DISP.SYRIN IVPUSH SCH ×2 (01:19→10:49)
[2017-09-20] MEDS: DOCUSATE SODIUM 100 MG CAPSULE (FP) PO SCH ×3 (05:40→21:30)
--- NOTE | 2017-09-20 05:41 | PN ---
Progress Note, Physician Chief Complaint: S/P CRANIOTOMY, ELEVATION OF DEPRESSED FRACTURE AND CRANIOPLASTY, POST OP DAY ONE. History of Present Illness: PATIENT RECEIVED GENERAL ANESTHESIA FOR THE SURGERY - Current Medication List Current Medications: Active Medications Acetaminophen/Codeine Phosphate (Tylenol # 3 -) 1 tab PO Q4H PRN PRN Reason: PAIN Docusate Sodium (Colace -) 100 mg PO TID [facility] Last Admin: 09/19/17 22:23 Dose: 100 mg Fentanyl (Sublimaze Injection -) 50 mcg IVPUSH Q5M PRN PRN Reason: PAIN Fluoxetine HCl (Prozac -) 20 mg PO DAILY [facility] Clindamycin Phosphate (Cleocin 300 Mg Premix Ivpb) 300 mg in 50 mls @ 100 mls/ hr IVPB Q8H-IV [facility] Last Admin: 09/20/17 01:16 Dose: 100 mls/hr Meropenem (Merrem (Restricted To Id) -) 1 gm in 20 mls @ 240 mls/hr IVPUSH Q8H- IV [facility] Last Admin: 09/20/17 01:19 Dose: 240 mls/hr Vancomycin HCl 1,000 mg/ (Dextrose) 250 mls @ 250 mls/hr IVPB BID [facility] PRN Reason: Protocol Stop: 09/20/17 21:59 Last Admin: 09/19/17 22:55 Dose: 250 mls/hr Levetiracetam (Keppra Injection -) 500 mg IVPB BID [facility] Last Admin: 09/19/17 22:23 Dose: 500 mg Morphine Sulfate (Morphine Sulfate) 2 mg IVPUSH Q4H PRN PRN Reason: PAIN Last Admin: 09/19/17 22:59 Dose: 2 mg Ondansetron HCl (Zofran Injection) 4 mg IVPUSH Q6H PRN PRN Reason: NAUSEA AND/OR VOMITING Ondansetron HCl (Zofran Injection) 4 mg IVPUSH Q6H PRN PRN Reason: NAUSEA Pantoprazole Sodium (Protonix Iv) 40 mg IVPUSH DAILY [facility] Promethazine HCl (Phenergan Injection -) 12.5 mg IVPUSH Q6H PRN PRN Reason: NAUSEA-FOR RESCUE AFTER 15 MIN - Objective Vital Signs: Vital Signs Temperature 98.6 F 09/20/17 01:50 Pulse Rate 68 09/20/17 01:50 Respiratory Rate 18 09/20/17 01:50 Blood Pressure 132/72 09/20/17 01:50 O2 Sat by Pulse Oximetry (%) 98 09/19/17 21:00 Constitutional: Yes: Well Nourished Neck: Yes: WNL Cardiovascular: Yes: WNL Respiratory: Yes: WNL Gastrointestinal: Yes: WNL Labs: CBC, BMP 09/19/17 05:50 09/19/17 05:50 INR, PTT INR 1.04 (0.82-1.09) 09/19/17 05:50 Assessment/Plan NO ADVERSE EFFECT FROM ANESTHETIC, NO COMPLICATIONS, PAIN CONTROLLED BY ORAL ANALGESICS, NO FURTHER FOLLOW UP NECESSARY FROM THE DEPT OF ANESTHESIA.
[2017-09-20 08:01] LABS: BASOPHIL 0.5 % (0-2.0); MCH 31.8 pg (25.7-33.7); MCHC 33.6 g/dl (32.0-36.0); MEAN CELL VOLUME 94.6 fl (80-96); MEAN PLT VOLUME 7.6 fl (7.5-11.1); NEUTROPHILS 65.7 % (42.8-82.8); PLATELET COUNT 200 K/MM3 (134-434); RDW 12.8 % (11.6-15.6); WHITE BLOOD COUNT 10.8 K/mm3 (4.0-10.0)
--- NOTE | 2017-09-20 08:08 | PN ---
Progress Note (short form) - Note Progress Note: NEUROSURGERY POD #2 minimal H/A no N/V On floor care PE: AF, VSS A/A/Ox3 HEENT- L frontotemporal incision c/d/i; mild L facial/scalp swelling but expected; Neck- supple; Cor- RRR; Lungs- CTA B; Abd- benign, + BS; Ext- no sign of fx or DVT CN- intact; Motor- 5/5 without drift; Sensation- intact LT, vibration; DTR- 1+; cerebellar- intact FTN B L fronto-temporal open depressed skull fracture Head CT- expected postop appearance; corrected depressed skull fracture keppra for sz prophylaxis x 1 week On Clinda and meropenem per ID Regular diet OOB Observe wound and temp
[2017-09-20] MEDS: ACETAMINOPHEN WITH CODEINE 300MG/30MG TABLET PO PRN ×4 (08:22→21:10)
[2017-09-20 08:41] LABS: ANION GAP 6 (8-16); CALCIUM 9.3 mg/dL (8.5-10.1); CO2 30 mmol/L (21-32); GLUCOSE,RANDOM 115 mg/dL (74-106)
[2017-09-20 08:44] LABS: CREATININE 0.4 mg/dL (0.55-1.02)
[2017-09-20] MEDS ORDERED: PT OWN MED DRAWER 7, Y5N ONE ×2 (09:07→11:06)
[2017-09-20] MEDS: FLUoxetine HCL 20 MG CAPSULE (FP) PO SCH (09:26)
[2017-09-20] MEDS: PANTOPRAZOLE SODIUM 40 MG VIAL IVPUSH SCH (09:26)
[2017-09-20] MEDS: levETIRAcetam 500 MG/5 ML INJECTION VIAL IVPB SCH (09:27)
--- NOTE | 2017-09-20 09:49 | PN ---
Progress Note (short form) - Note Progress Note: Neurology History of Present Illness 57F with pmh of depression, cataracts surgery and back pain on Tizanidine came to the ER after fall with head trauma. Patient went outside to smoke and came back 15 min later with a laceration on her left gnosticism. Reportedly she didn't remember what happened, fall not witnessed, possible LOC. per family, she had been consuling ETOH. CT head was completed in the ER and demonstrated Acute left frontal bone fracture at junction of left frontal and temporal bones. The fracture fragment which measured approximately 2.2cm in length is depressed medially approximately 7mm. It impressed on the cortex at the junction on the left. No hemorrhage was identified. Dr. Aguila completed surgical intervention without complication and repeat CT head that showed fluid without significant mass effect. Remains on seizure ppx and had headache this AM, otherwise neurologically stable. Is interactive and mentating well. Was able to have conversation and may be able to go home after hospitalization. Is on IV ABx and pending completion of that, should be stable for discharge. Active Medications Acetaminophen/Codeine Phosphate (Tylenol # 3 -) 1 tab PO Q4H PRN PRN Reason: PAIN Last Admin: 09/20/17 08:22 Dose: 1 tab Docusate Sodium (Colace -) 100 mg PO TID [facility] Last Admin: 09/20/17 05:40 Dose: 100 mg Fentanyl (Sublimaze Injection -) 50 mcg IVPUSH Q5M PRN PRN Reason: PAIN Fluoxetine HCl (Prozac -) 20 mg PO DAILY [facility] Last Admin: 09/20/17 09:26 Dose: 20 mg Clindamycin Phosphate (Cleocin 300 Mg Premix Ivpb) 300 mg in 50 mls @ 100 mls/ hr IVPB Q8H-IV [facility] Last Admin: 09/20/17 01:16 Dose: 100 mls/hr Meropenem (Merrem (Restricted To Id) -) 1 gm in 20 mls @ 240 mls/hr IVPUSH Q8H- IV [facility] Last Admin: 09/20/17 01:19 Dose: 240 mls/hr Vancomycin HCl 1,000 mg/ (Dextrose) 250 mls @ 250 mls/hr IVPB BID [facility] PRN Reason: Protocol Stop: 09/20/17 21:59 Last Admin: 09/19/17 22:55 Dose: 250 mls/hr Levetiracetam (Keppra Injection -) 500 mg IVPB BID [facility] Last Admin: 09/20/17 09:27 Dose: 500 mg Morphine Sulfate (Morphine Sulfate) 2 mg IVPUSH Q4H PRN PRN Reason: PAIN Last Admin: 09/19/17 22:59 Dose: 2 mg Ondansetron HCl (Zofran Injection) 4 mg IVPUSH Q6H PRN PRN Reason: NAUSEA AND/OR VOMITING Ondansetron HCl (Zofran Injection) 4 mg IVPUSH Q6H PRN PRN Reason: NAUSEA Pantoprazole Sodium (Protonix Iv) 40 mg IVPUSH DAILY [facility] Last Admin: 09/20/17 09:26 Dose: 40 mg Vital Signs Temperature 98.3 F 09/20/17 08:00 Pulse Rate 64 09/20/17 08:00 Respiratory Rate 14 09/20/17 08:00 Blood Pressure 117/72 09/20/17 08:00 O2 Sat by Pulse Oximetry (%) 98 09/19/17 21:00 - Physical Exam General Appearance: Yes: Nourished, Appropriately Dressed. No: Apparent Distress HEENT: positive: Other (3cm deep laceration on the right fronto-temporal skull. no active bleeding. Pupils 3mm, not reacting to light or accomodating. ) Respiratory/Chest: positive: Lungs Clear, Normal Breath Sounds. negative: Chest Tender Cardiovascular: positive: Regular Rhythm, Regular Rate, S1, S2 Gastrointestinal/Abdominal: positive: Normal Bowel Sounds, Soft. negative: Tender Neurologic: positive: Fully Oriented, Alert, Normal Mood/Affect, Normal Response , Motor Strength 5/5, sensory intact, gait deferred CBCD WBC 10.8 K/mm3 (4.0-10.0) H 09/20/17 07:00 RBC 3.82 M/mm3 (3.60-5.2) 09/20/17 07:00 Hgb 12.1 GM/dL (10.7-15.3) 09/20/17 07:00 Hct 36.1 % (32.4-45.2) 09/20/17 07:00 MCV 94.6 fl (80-96) 09/20/17 07:00 MCHC 33.6 g/dl (32.0-36.0) 09/20/17 07:00 RDW 12.8 % (11.6-15.6) 09/20/17 07:00 Plt Count 200 K/MM3 (134-434) 09/20/17 07:00 MPV 7.6 fl (7.5-11.1) 09/20/17 07:00 CMP Sodium 138 mmol/L (136-145) 09/20/17 07:00 Potassium 4.2 mmol/L (3.5-5.1) 09/20/17 07:00 Chloride 102 mmol/L (98-107) 09/20/17 07:00 Carbon Dioxide 30 mmol/L (21-32) 09/20/17 07:00 Anion Gap 6 (8-16) L 09/20/17 07:00 BUN 10 mg/dL (7-18) 09/20/17 07:00 Creatinine 0.4 mg/dL (0.55-1.02) L 09/20/17 07:00 Creat Clearance w eGFR > 60 (>60) 09/19/17 05:50 Calcium 9.3 mg/dL (8.5-10.1) 09/20/17 07:00 Total Bilirubin 0.9 mg/dL (0.2-1.0) D 09/19/17 05:50 AST 17 U/L (15-37) 09/19/17 05:50 ALT 30 U/L (12-78) 09/19/17 05:50 Alkaline Phosphatase 60 U/L (45-117) 09/19/17 05:50 Total Protein 6.3 g/dl (6.4-8.2) L 09/19/17 05:50 Albumin 3.5 g/dl (3.4-5.0) 09/19/17 05:50 CT head: Acute left frontal bone fracture at junction of left frontal and temporal bones. The fracture fragment which measures approximately 2.2cm in length is depressed medially approximately 7mm. It impresses on the cortex at the junction on the left. There are one or 2 subdural air next to the fracture. No hemorrhage is identified. No shift or herniation. No infarct. There is overlying soft tissue injury. CT Neck: Negative for cervial fracture or malalignment. 1.2cm right lobe thyroid nodule Medical Decision Making 57F with pmh of depression, cataracts surgery and back pain on Tizanidine came to the ER after fall with head trauma. Patient went outside to smoke and came back 15 min later with a laceration on her left gnosticism. Reportedly she didn't remember what happened, fall not witnessed, possible LOC. per family, she had been consuling ETOH. CT head was completed in the ER and demonstrated Acute left frontal bone fracture at junction of left frontal and temporal bones. The fracture fragment which measured approximately 2.2cm in length is depressed medially approximately 7mm. It impressed on the cortex at the junction on the left. No hemorrhage was identified. Dr. Aguila completed surgical intervention without complication and repeat CT head this morning showed fluid without significant mass effect. Remains on seizure ppx and had headache this AM, getting T3 for it, otherwise neurologically stable. Continue Monitoring blood pressure, maintain normotensive range. Follow up NSGY notes and monitor neurologic exam. Continue Keppra for seizure prevention. Abx for infection prevention. Must be cautious of subsequent falls and head trauma. Etoh cessation recommended, discussed all this with patient who was in agreement.
[2017-09-20] MEDS: VANCOMYCIN 1,000 MG in DEXTROSE 5%-WATER - 250 ML IVPB SCH (11:25)
--- NOTE | 2017-09-20 11:38 | EKG ---
Test Reason : Blood Pressure : / mmHG Vent. Rate : 075 BPM Atrial Rate : 075 BPM P-R Int : 146 ms QRS Dur : 088 ms QT Int : 404 ms P-R-T Axes : 047 042 029 degrees QTc Int : 451 ms NORMAL SINUS RHYTHM NORMAL ECG WHEN COMPARED WITH ECG OF 08-DEC-2016 16:49, QT HAS LENGTHENED Confirmed by CARMINA MARTINEZ MD ([id number]) on 09/20/2017 11:37:52 AM Referred By: Confirmed By:CARMINA MARTINEZ MD
--- NOTE | 2017-09-20 15:21 | PN ---
Physical Exam: SUBJECTIVE: Patient seen and examined. She has head pain to area, albeit toleratble. no fevers. OBJECTIVE: Vital Signs Period Temp Pulse Resp BP Sys/Dillard Pulse Ox Last 24 Hr 98.3 F-98.6 F 64-86 14-18 112-132/55-74 96-98 PE Neuro: alert, awake, cn 2-2intact, skull dressing with xeroform, sutures, no erythema, L orbital swelling improved Pulm: CTAB CV: s1 s2 rrr no mrg Abd: s nt nd + bs Ext: warm, no le edema + dp pulses Laboratory Results - last 24 hr 09/20/17 09/20/17 07:00 07:00 WBC 10.8 H RBC 3.82 Hgb 12.1 Hct 36.1 MCV 94.6 MCH 31.8 MCHC 33.6 RDW 12.8 Plt Count 200 MPV 7.6 Neutrophils % 65.7 Lymphocytes % 22.5 D Monocytes % 9.3 Eosinophils % 2.0 D Basophils % 0.5 Sodium 138 Potassium 4.2 Chloride 102 Carbon Dioxide 30 Anion Gap 6 L BUN 10 Creatinine 0.4 L Random Glucose 115 H Calcium 9.3 Active Medications Generic Name Dose Route Start Last Admin Trade Name Freq PRN Reason Stop Dose Admin Acetaminophen/Codeine Phosphate 1 tab 09/19/17 18:39 09/20/17 13:17 Tylenol # 3 - PO 1 tab Q4H PRN Administration PAIN Docusate Sodium 100 mg 09/19/17 22:00 09/20/17 13:17 Colace - PO 100 mg TID DON[facility] Administration Fentanyl 50 mcg 09/19/17 18:39 Sublimaze Injection - IVPUSH Q5M PRN PAIN Fluoxetine HCl 20 mg 09/20/17 10:00 09/20/17 09:26 Prozac - PO 20 mg DAILY [facility] Administration Clindamycin Phosphate 300 mg in 50 mls @ 100 mls/hr 09/20/17 02:00 09/20/17 10:08 Cleocin 300 Mg Premix Ivpb IVPB 100 mls/hr Q8H-IV DON[facility] Administration Meropenem 1 gm in 20 mls @ 240 mls/hr 09/20/17 02:00 09/20/17 10:49 Merrem (Restricted To Id) - IVPUSH 240 mls/hr Q8H-IV [facility] Administration Vancomycin HCl 1,000 mg/ 250 mls @ 250 mls/hr 09/19/17 22:00 09/20/17 11:25 Dextrose IVPB 09/20/17 21:59 250 mls/hr BID DON[facility] Administration Protocol Levetiracetam 500 mg 09/19/17 22:00 09/20/17 09:27 Keppra Injection - IVPB 500 mg BID [facility] Administration Morphine Sulfate 2 mg 09/19/17 18:39 09/19/17 22:59 Morphine Sulfate IVPUSH 2 mg Q4H PRN Administration PAIN Ondansetron HCl 4 mg 09/19/17 18:39 Zofran Injection IVPUSH Q6H PRN NAUSEA AND/OR VOMITING Ondansetron HCl 4 mg 09/19/17 18:39 Zofran Injection IVPUSH Q6H PRN NAUSEA Pantoprazole Sodium 40 mg 09/20/17 10:00 09/20/17 09:26 Protonix Iv IVPUSH 40 mg DAILY [facility] Administration Assessment: 57 year old male with PMHx depression and alcohol abuse admitted with left depressed frontal/temporal skull fracture s/p fall at home, now s/p skull fracture repair 09/18. Plan: 1. L depressed frontal/temporal skull fx - s/p crainotomy, fixation of depressed skull fracture 09/18 - Maintain Keppra BID for seizure ppx x1 week - Continue paris/clinda per ID 2. Depression - Prozac 20mg 3. ETOH abuse - No signs of withdrawal Visit type - Emergency Visit Emergency Visit: Yes ED Registration Date: 09/17/17 Care time: The patient presented to the Emergency Department on the above date and was hospitalized for further evaluation of their emergent condition. - New Patient This patient is new to me today: No - Critical Care Critical Care patient: No
--- NOTE | 2017-09-20 15:36 | PN ---
Progress Note, Physician History of Present Illness: doing well no complaints except swelling below the left eye wound looks good - Current Medication List Current Medications: Active Medications Acetaminophen/Codeine Phosphate (Tylenol # 3 -) 1 tab PO Q4H PRN PRN Reason: PAIN Last Admin: 09/20/17 13:17 Dose: 1 tab Docusate Sodium (Colace -) 100 mg PO TID [facility] Last Admin: 09/20/17 13:17 Dose: 100 mg Fentanyl (Sublimaze Injection -) 50 mcg IVPUSH Q5M PRN PRN Reason: PAIN Fluoxetine HCl (Prozac -) 20 mg PO DAILY [facility] Last Admin: 09/20/17 09:26 Dose: 20 mg Clindamycin Phosphate (Cleocin 300 Mg Premix Ivpb) 300 mg in 50 mls @ 100 mls/ hr IVPB Q8H-IV [facility] Last Admin: 09/20/17 10:08 Dose: 100 mls/hr Meropenem (Merrem (Restricted To Id) -) 1 gm in 20 mls @ 240 mls/hr IVPUSH Q8H- IV [facility] Last Admin: 09/20/17 10:49 Dose: 240 mls/hr Vancomycin HCl 1,000 mg/ (Dextrose) 250 mls @ 250 mls/hr IVPB BID [facility] PRN Reason: Protocol Stop: 09/20/17 21:59 Last Admin: 09/20/17 11:25 Dose: 250 mls/hr Levetiracetam (Keppra Injection -) 500 mg IVPB BID [facility] Last Admin: 09/20/17 09:27 Dose: 500 mg Morphine Sulfate (Morphine Sulfate) 2 mg IVPUSH Q4H PRN PRN Reason: PAIN Last Admin: 09/19/17 22:59 Dose: 2 mg Ondansetron HCl (Zofran Injection) 4 mg IVPUSH Q6H PRN PRN Reason: NAUSEA AND/OR VOMITING Ondansetron HCl (Zofran Injection) 4 mg IVPUSH Q6H PRN PRN Reason: NAUSEA Pantoprazole Sodium (Protonix Iv) 40 mg IVPUSH DAILY [facility] Last Admin: 09/20/17 09:26 Dose: 40 mg - Objective Vital Signs: Vital Signs Temperature 98.2 F 09/20/17 15:22 Pulse Rate 71 09/20/17 15:22 Respiratory Rate 18 09/20/17 15:22 Blood Pressure 122/68 09/20/17 15:22 O2 Sat by Pulse Oximetry (%) 96 09/20/17 09:00 Constitutional: Yes: No Distress Eyes: Yes: Conjunctiva Clear HENT: Yes: Other (swelling below left eyelid) Cardiovascular: Yes: Regular Rate and Rhythm Respiratory: Yes: Regular, CTA Bilaterally Gastrointestinal: Yes: Normal Bowel Sounds, Soft Musculoskeletal: Yes: WNL Extremities: Yes: WNL Wound/Incision: Yes: Clean/Dry, Well Approximated Neurological: Yes: Alert, Oriented Psychiatric: Yes: Alert, Oriented Labs: CBC, BMP 09/20/17 07:00 09/20/17 07:00 INR, PTT INR 1.04 (0.82-1.09) 09/19/17 05:50 Assessment/Plan Problem List - Problems (1) Alcohol abuse Code(s): F10.10 - ALCOHOL ABUSE, UNCOMPLICATED (2) Depressed skull fracture Code(s): S02.91XA - UNSP FRACTURE OF SKULL, INIT ENCNTR FOR CLOSED FRACTURE Qualifiers: Encounter type: initial encounter Fracture type: open Qualified Code(s): S02.91XB - Unspecified fracture of skull, initial encounter for open fracture (3) Depression Code(s): F32.9 - MAJOR DEPRESSIVE DISORDER, SINGLE EPISODE, UNSPECIFIED Qualifiers: Depression Type: major depressive disorder looking at her history of etoh abuse and fracture with suspicion of soiling i am going to start patient on iv abx for now we will monitor how patient does and then make further decision plan will switch to oral clinda will stop all other abx monitor swelling below the eyelid rest as per primary team
[2017-09-20] MEDS: CLINDAMYCIN HCL 150 MG CAPSULE (FP) PO SCH ×2 (15:54→17:05)
[2017-09-20] MEDS ORDERED: levETIRAcetam 500 MG TABLET (FP) PO SCH (21:00)
[2017-09-20] MEDS: levETIRAcetam 500 MG TABLET (FP) PO SCH (21:29)
[2017-09-21] MEDS: ACETAMINOPHEN WITH CODEINE 300MG/30MG TABLET PO PRN ×3 (01:08→11:24)
[2017-09-21] MEDS: DOCUSATE SODIUM 100 MG CAPSULE (FP) PO SCH (06:42)
[2017-09-21] MEDS: CLINDAMYCIN HCL 150 MG CAPSULE (FP) PO SCH ×3 (06:42→11:09)
[2017-09-21 07:29] LABS: BASOPHIL 0.6 % (0-2.0); MCH 31.1 pg (25.7-33.7); MCHC 33.2 g/dl (32.0-36.0); MEAN CELL VOLUME 93.7 fl (80-96); PLATELET COUNT 205 K/MM3 (134-434); RDW 12.5 % (11.6-15.6)
--- NOTE | 2017-09-21 07:55 | PN ---
Progress Note (short form) - Note Progress Note: NEUROSURGERY POD #3 minimal H/A no N/V On floor care PE: Tmax 98.4, AF, VSS A/A/Ox3 HEENT- L frontotemporal incision c/d/i; mild L facial/scalp/periorbital swelling improved; Neck- supple; Cor- RRR; Lungs- CTA B; Abd- benign, + BS; Ext - no sign of fx or DVT CN- intact; Motor- 5/5 without drift; Sensation- intact LT, vibration; DTR- 1+; cerebellar- intact FTN B L fronto-temporal open depressed skull fracture Head CT- expected postop appearance; corrected depressed skull fracture WBC down to 9K keppra for sz prophylaxis x 1 week Switched to oral cleocin per ID Regular diet OOB Observe wound and temp Wound care and activity instructions given No driving for first week post-op when on Keppra Call my office to be seen next week for suture removal
--- NOTE | 2017-09-21 10:24 | PN ---
Progress Note (short form) - Note Progress Note: Neurology History of Present Illness 57F with pmh of depression, cataracts surgery and back pain on Tizanidine came to the ER after fall with head trauma. Patient went outside to smoke and came back 15 min later with a laceration on her left alevism. Reportedly she didn't remember what happened, fall not witnessed, possible LOC. per family, she had been consuling ETOH. CT head was completed in the ER and demonstrated Acute left frontal bone fracture at junction of left frontal and temporal bones. The fracture fragment which measured approximately 2.2cm in length is depressed medially approximately 7mm. It impressed on the cortex at the junction on the left. No hemorrhage was identified. Dr. Aguila completed surgical intervention without complication and repeat CT head that showed fluid without significant mass effect. Remains on seizure ppx and had headache this AM, otherwise neurologically stable. Is interactive and mentating well. Was able to have conversation and may be able to go home after hospitalization. [place] [facility] [place]. Neurologically stable. Active Medications Acetaminophen/Codeine Phosphate (Tylenol # 3 -) 1 tab PO Q4H PRN PRN Reason: PAIN Last Admin: 09/21/17 06:45 Dose: 1 tab Clindamycin HCl (Cleocin -) 300 mg PO Q6HPO [facility] Last Admin: 09/21/17 06:42 Dose: 300 mg Docusate Sodium (Colace -) 100 mg PO TID [facility] Last Admin: 09/21/17 06:42 Dose: 100 mg Fentanyl (Sublimaze Injection -) 50 mcg IVPUSH Q5M PRN PRN Reason: PAIN Fluoxetine HCl (Prozac -) 20 mg PO DAILY [facility] Last Admin: 09/20/17 09:26 Dose: 20 mg Levetiracetam (Keppra -) 500 mg PO BID [facility] Last Admin: 09/20/17 21:29 Dose: 500 mg Morphine Sulfate (Morphine Sulfate) 2 mg IVPUSH Q4H PRN PRN Reason: PAIN Last Admin: 09/19/17 22:59 Dose: 2 mg Ondansetron HCl (Zofran Injection) 4 mg IVPUSH Q6H PRN PRN Reason: NAUSEA AND/OR VOMITING Ondansetron HCl (Zofran Injection) 4 mg IVPUSH Q6H PRN PRN Reason: NAUSEA Pantoprazole Sodium (Protonix Iv) 40 mg IVPUSH DAILY [facility] Last Admin: 09/20/17 09:26 Dose: 40 mg Vital Signs Temperature 98.0 F 09/21/17 08:41 Pulse Rate 65 09/21/17 08:41 Respiratory Rate 18 09/21/17 08:41 Blood Pressure 135/75 09/21/17 08:41 O2 Sat by Pulse Oximetry (%) 96 09/20/17 09:00 - Physical Exam General Appearance: Yes: Nourished, Appropriately Dressed. No: Apparent Distress HEENT: positive: Other (3cm deep laceration on the right fronto-temporal skull. no active bleeding. Pupils 3mm, not reacting to light or accomodating. ) Respiratory/Chest: positive: Lungs Clear, Normal Breath Sounds. negative: Chest Tender Cardiovascular: positive: Regular Rhythm, Regular Rate, S1, S2 Gastrointestinal/Abdominal: positive: Normal Bowel Sounds, Soft. negative: Tender Neurologic: positive: Fully Oriented, Alert, Normal Mood/Affect, Normal Response , Motor Strength 5/5, sensory intact, gait deferred CBCD WBC 9.0 K/mm3 (4.0-10.0) 09/21/17 06:00 RBC 3.87 M/mm3 (3.60-5.2) 09/21/17 06:00 Hgb 12.0 GM/dL (10.7-15.3) 09/21/17 06:00 Hct 36.3 % (32.4-45.2) 09/21/17 06:00 MCV 93.7 fl (80-96) 09/21/17 06:00 MCHC 33.2 g/dl (32.0-36.0) 09/21/17 06:00 RDW 12.5 % (11.6-15.6) 09/21/17 06:00 Plt Count 205 K/MM3 (134-434) 09/21/17 06:00 MPV 8.0 fl (7.5-11.1) 09/21/17 06:00 CMP Sodium 138 mmol/L (136-145) 09/20/17 07:00 Potassium 4.2 mmol/L (3.5-5.1) 09/20/17 07:00 Chloride 102 mmol/L (98-107) 09/20/17 07:00 Carbon Dioxide 30 mmol/L (21-32) 09/20/17 07:00 Anion Gap 6 (8-16) L 09/20/17 07:00 BUN 10 mg/dL (7-18) 09/20/17 07:00 Creatinine 0.4 mg/dL (0.55-1.02) L 09/20/17 07:00 Creat Clearance w eGFR > 60 (>60) 09/19/17 05:50 Calcium 9.3 mg/dL (8.5-10.1) 09/20/17 07:00 Total Bilirubin 0.9 mg/dL (0.2-1.0) D 09/19/17 05:50 AST 17 U/L (15-37) 09/19/17 05:50 ALT 30 U/L (12-78) 09/19/17 05:50 Alkaline Phosphatase 60 U/L (45-117) 09/19/17 05:50 Total Protein 6.3 g/dl (6.4-8.2) L 09/19/17 05:50 Albumin 3.5 g/dl (3.4-5.0) 09/19/17 05:50 CT head: Acute left frontal bone fracture at junction of left frontal and temporal bones. The fracture fragment which measures approximately 2.2cm in length is depressed medially approximately 7mm. It impresses on the cortex at the junction on the left. There are one or 2 subdural air next to the fracture. No hemorrhage is identified. No shift or herniation. No infarct. There is overlying soft tissue injury. CT Neck: Negative for cervial fracture or malalignment. 1.2cm right lobe thyroid nodule Medical Decision Making 57F with pmh of depression, cataracts surgery and back pain on Tizanidine came to the ER after fall with head trauma. Patient went outside to smoke and came back 15 min later with a laceration on her left alevism. Reportedly she didn't remember what happened, fall not witnessed, possible LOC. per family, she had been consuling ETOH. CT head was completed in the ER and demonstrated Acute left frontal bone fracture at junction of left frontal and temporal bones. The fracture fragment which measured approximately 2.2cm in length is depressed medially approximately 7mm. It impressed on the cortex at the junction on the left. No hemorrhage was identified. Dr. Aguila completed surgical intervention without complication and repeat CT head this morning showed fluid without significant mass effect. Remains on seizure ppx and had headache this AM, getting T3 for it, otherwise neurologically stable. Continue Monitoring blood pressure, maintain normotensive range. Follow up NSGY rec'd and monitor neurologic exam. Continue Keppra for seizure prevention. Must be cautious of subsequent falls and head trauma. Etoh cessation recommended, discussed all this with patient who was in agreement. Outpatient follow up.
[2017-09-21] MEDS ORDERED: PT OWN MED DRAWER 7, Y5N ONE (11:07)
[2017-09-21] MEDS: levETIRAcetam 500 MG TABLET (FP) PO SCH (11:10)
[2017-09-21] MEDS: FLUoxetine HCL 20 MG CAPSULE (FP) PO SCH (11:14)
[2017-09-21] MEDS: PANTOPRAZOLE SODIUM 40 MG VIAL IVPUSH SCH (11:14)
--- NOTE | 2017-09-21 13:33 | PN ---
Progress Note, Physician History of Present Illness: stable headache - Current Medication List Current Medications: Active Medications Acetaminophen/Codeine Phosphate (Tylenol # 3 -) 1 tab PO Q4H PRN PRN Reason: PAIN Last Admin: 09/21/17 11:24 Dose: 1 tab Clindamycin HCl (Cleocin -) 300 mg PO Q6HPO [facility] Last Admin: 09/21/17 11:09 Dose: 300 mg Docusate Sodium (Colace -) 100 mg PO TID [facility] Last Admin: 09/21/17 06:42 Dose: 100 mg Fentanyl (Sublimaze Injection -) 50 mcg IVPUSH Q5M PRN PRN Reason: PAIN Fluoxetine HCl (Prozac -) 20 mg PO DAILY [facility] Last Admin: 09/21/17 11:14 Dose: 20 mg Levetiracetam (Keppra -) 500 mg PO BID [facility] Last Admin: 09/21/17 11:10 Dose: 500 mg Morphine Sulfate (Morphine Sulfate) 2 mg IVPUSH Q4H PRN PRN Reason: PAIN Last Admin: 09/19/17 22:59 Dose: 2 mg Ondansetron HCl (Zofran Injection) 4 mg IVPUSH Q6H PRN PRN Reason: NAUSEA AND/OR VOMITING Ondansetron HCl (Zofran Injection) 4 mg IVPUSH Q6H PRN PRN Reason: NAUSEA Pantoprazole Sodium (Protonix Iv) 40 mg IVPUSH DAILY [facility] Last Admin: 09/21/17 11:14 Dose: 40 mg - Objective Vital Signs: Vital Signs Temperature 98.4 F 09/21/17 12:00 Pulse Rate 62 09/21/17 12:00 Respiratory Rate 18 09/21/17 12:00 Blood Pressure 106/67 09/21/17 12:00 O2 Sat by Pulse Oximetry (%) 96 09/20/17 09:00 Constitutional: Yes: Calm, Mild Distress Cardiovascular: Yes: Regular Rate and Rhythm Respiratory: Yes: Regular, CTA Bilaterally Gastrointestinal: Yes: Normal Bowel Sounds, Soft Musculoskeletal: Yes: WNL Extremities: Yes: WNL Wound/Incision: Yes: Clean/Dry, Other Neurological: Yes: Alert, Oriented Psychiatric: Yes: Alert, Oriented Labs: CBC, BMP 09/21/17 06:00 09/20/17 07:00 INR, PTT INR 1.04 (0.82-1.09) 09/19/17 05:50 Assessment/Plan Problem List - Problems (1) Alcohol abuse Code(s): F10.10 - ALCOHOL ABUSE, UNCOMPLICATED (2) Depressed skull fracture Code(s): S02.91XA - UNSP FRACTURE OF SKULL, INIT ENCNTR FOR CLOSED FRACTURE Qualifiers: Encounter type: initial encounter Fracture type: open Qualified Code(s): S02.91XB - Unspecified fracture of skull, initial encounter for open fracture (3) Depression Code(s): F32.9 - MAJOR DEPRESSIVE DISORDER, SINGLE EPISODE, UNSPECIFIED Qualifiers: Depression Type: major depressive disorder looking at her history of etoh abuse and fracture with suspicion of soiling i am going to start patient on iv abx for now we will monitor how patient does and then make further decision plan continue oral clinda from my point of view clinda for another 7 days neuro and neurosurgey following rest as per primary team
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
[2017-09-21 15:25] VITALS: BP 107/62; PULSE 76; TEMP 98
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
== END 2017-09-21 15:55 | disposition home or self-care (01) | DRG 27 ==
LOC: JER 20:25 → JERBED 23:09 → UNDOADMIN 23:47 → JERBED 23:47 → JICU 09-18 01:31 → J8W 09-19 20:13
PROVIDERS: ADMIT Internal Medicine; ATTEND Nurse Practitioner Acute Care
PROC: 0NH004Z Insertion of Internal Fixation Device into Skull, Open Approach (ICD-10-PCS; 2017-09-18)
PROC: 00930ZZ Drainage of Intracranial Epidural Space, Open Approach (ICD-10-PCS; 2017-09-18)
PROC: 0HQ1XZZ Repair Face Skin, External Approach (ICD-10-PCS; 2017-09-18)
PROC: 0NS004Z Reposition Skull with Internal Fixation Device, Open Approach (ICD-10-PCS; principal; 2017-09-18 09:00)
DX: S02.0XXB Fracture of vault of skull, initial encounter for open fracture (principal); S06.891A Other specified intracranial injury with loss of consciousness of 30 minutes or less, initial encounter; S02.19XA Other fracture of base of skull, initial encounter for closed fracture; W01.0XXA Fall on same level from slipping, tripping and stumbling without subsequent striking against object, initial encounter; Y93.89 Activity, other specified; Y92.018 Other place in single-family (private) house as the place of occurrence of the external cause; Y99.8 Other external cause status; F14.10 Cocaine abuse, uncomplicated; F17.210 Nicotine dependence, cigarettes, uncomplicated; F10.10 Alcohol abuse, uncomplicated; Z96.651 Presence of right artificial knee joint; M79.7 Fibromyalgia; Y90.7 Blood alcohol level of 200-239 mg/100 ml; F32.9 Major depressive disorder, single episode, unspecified
CPT/HCPCS: 36415; 70450-TC; 71010-TC; 72125-TC; 80048; 80053; 80307; 81003; 83735; 84100; 84443; 85025; 85610; 85730; 86850; 86900; 86901; 90732; 93005; 93010; 99283-25; G0009; J1670

== ENCOUNTER → 2022-09-22 | Day surgery (SDC) | payer BC | END | disposition home or self-care (01) | LOC: JRADIR 09:15 | PROVIDERS: ATTEND Internal Medicine Endocrinology, Diabetes & Metabolism | PROC: 0G9H3ZX Drainage of Right Thyroid Gland Lobe, Percutaneous Approach, Diagnostic (ICD-10-PCS; principal; 2022-09-22) | DX: E04.1 Nontoxic single thyroid nodule (principal) | CPT/HCPCS: 10005; 76942; 88173; 88305-TC ==